=== PATIENT | male | born 1990 | race Caucasian/White ===

== ENCOUNTER 2020-08-06 08:10 | Outpatient (CLI) | payer BC, SELFPAY ==
--- NOTE | ~2020-08-06 | MR_ITS ---
EXAMINATION: MR brain/brain stem wo/w con DATE: 08/06/2020 08:49 INDICATION: Headache. TECHNIQUE: Magnetic resonance imaging (MRI) of the brain and brainstem was performed without and with 15 mL MultiHance intravenous contrast. Sequences included sagittal and axial T1-weighted FSE, axial diffusion-weighted FS EPI, axial T2*-weighted GRE, axial T2-weighted FLAIR Propeller, and axial T2-we ighted Propeller. Postcontrast sequences included axial and coronal T1-weighted FSE. Apparent diffusi on coefficient (ADC) maps were created. COMPARISON: None. FINDINGS: There are scattered areas of nonspecific increased T2-weighted signal intensity in the cere bral white matter, which is within normal limits for the patient's age. There is no intracranial hemo rrhage, acute infarction, or abnormal intracranial mass lesion. The ventricles are normal in size. Th ere is mild mucosal thickening in right maxillary sinus. The orbits are normal. The mastoid air cells are normal. IMPRESSION: 1. Normal aging brain. Reviewed, dictated and finalized at location A. IMPRESSION: 1. Normal aging brain.
[2020-08-06 08:34] LABS: Estimated Glomerular Filt Rate > 60
== END 2020-08-06 08:11 ==
PROVIDERS: PCP Emergency Medicine; Visit Provider Emergency Medicine
DX: R51 Headache (principal)
CPT/HCPCS: 70553; A9577

== ENCOUNTER → 2020-09-03 13:14 | Outpatient (CLI) | payer BC, SELFPAY ==
--- NOTE | ~2020-09-03 | XR_ITS ---
EXAMINATION: XR foot LT min 3V DATE: 09/03/2020 15:11 INDICATION: Polyarthralgia TECHNIQUE: 1. Dorsoplantar, two oblique and lateral views of the left foot were obtained. 2. Dorsoplantar, two oblique and lateral views of the right foot were obtained. COMPARISON: Right foot radiographs dated 11/03/2008 FINDINGS: Normal alignment at the bilateral feet. No fracture. Joint spaces are normal. No cortical erosions or periosteal reaction. Soft tissues are unremarkable. IMPRESSION: 1. Multiple radiographs of the bilateral feet. Reviewed, dictated and finalized at location B.
--- NOTE | ~2020-09-03 | XR_ITS ---
EXAMINATION: XR foot RT min 3V DATE: 09/03/2020 15:11 INDICATION: Polyarthralgia TECHNIQUE: 1. Dorsoplantar, two oblique and lateral views of the left foot were obtained. 2. Dorsoplantar, two oblique and lateral views of the right foot were obtained. COMPARISON: Right foot radiographs dated 11/03/2008 FINDINGS: Normal alignment at the bilateral feet. No fracture. Joint spaces are normal. No cortical erosions or periosteal reaction. Soft tissues are unremarkable. IMPRESSION: 1. Normal radiographs of the bilateral feet. Reviewed, dictated and finalized at location B.
--- NOTE | ~2020-09-03 | XR_ITS ---
EXAMINATION: XR chest 2V DATE: 09/03/2020 15:11 INDICATION: Pulmonary TB. Polyarthralgia. TECHNIQUE: PA and lateral views of the chest were obtained. COMPARISON: None FINDINGS: The lungs are clear with no focal airspace opacities, pulmonary edema, pleural effusion or pneumothor ax. The cardiomediastinal silhouette is normal. Mild upper thoracic levocurvature. IMPRESSION: 1. Clear lungs. No acute cardiopulmonary disease. Reviewed, dictated and finalized at location B.
--- NOTE | ~2020-09-03 | XR_ITS ---
EXAMINATION:XR_CERV2-3V_CR, XR thoracic spine 2V, XR lumbar spine 2-3V, XR pelvis 1-2V DATE: 09/03/2020 15:11 INDICATION: Polyarthralgia TECHNIQUE: 1. Standing AP, lateral, lateral swimmers and odontoid views of the cervical spine are provided. 2. Standing AP, lateral and lateral swimmer's views of the thoracic spine were obtained. 3. Standing AP, lateral and cone-down lateral lumbosacral views of the lumbar spine. 3. Standing AP view of the pelvis was obtained. COMPARISON: None FINDINGS: Cervical spine: Mild reversal of the normal cervical lordosis which could be some positional or due to muscle spasm. No spondylolisthesis or facet subluxation. Odontoid is intact. Normal atlantoaxial interval. Vertebr al body heights are normal. Disc spaces are normal. Prevertebral soft tissues are normal. Thoracic spine: 5 degree levocurvature measured between T3 and T7. 7 degree dextrocurvature measured between T7 and T 12. Sagittal alignment is normal. Vertebral body and disc heights are normal. Paravertebral soft tiss ues are unremarkable. Visualized portions of the lungs are clear. Cardiomediastinal silhouette is nor mal. Lumbar spine: 7 degrees lumbar levocurvature measured between L1 and L5. 2-3 mm retrolisthesis L5 on S1. Vertebral body and disc heights are normal. Pelvis: Alignment is normal. No fracture. Bilateral hip and sacroiliac joints are normal. There is decreased right femoral head/neck offset. Soft tissues are unremarkable. IMPRESSION: 1. Mild levocurvature in the lumbar and upper thoracic spine on other side of the mild lower thoracic dextrocurvature. 2. Mild decreased right femoral head/neck offset which could predispose towards cam-type femoral acet abular impingement. Reviewed, dictated and finalized at location B. IMPRESSION: 1. Mild levocurvature in the lumbar and upper thoracic spine on other side of t he mild lower thoracic dextrocurvature. 2. Mild decreased right femoral head/neck offset which could predispose towards cam-type femoral acetabular impingement. IMPRESSION: 1. Mild levocurvature in the lumbar and upper thoracic spine on other side of t he mild lower thoracic dextrocurvature. 2. Mild decreased right femoral head/neck offset which could predispose towards cam-type femoral acetabular impingement. IMPRESSION: 1. Mild levocurvature in the lumbar and upper thoracic spine on other side of t he mild lower thoracic dextrocurvature. 2. Mild decreased right femoral head/neck offset which could predispose towards cam-type femoral acetabular impingement.
== END ==
PROVIDERS: PCP Emergency Medicine; Visit Provider Physician Assistant
DX: M25.50 Pain in unspecified joint (principal); Z11.1 Encounter for screening for respiratory tuberculosis
CPT/HCPCS: 71046; 72040; 72070; 72100; 72170; 73630

== ENCOUNTER 2021-01-03 13:18 | Emergency (ER) | payer BC, SELFPAY ==
--- NOTE | 2021-01-03 13:23 | ECG_ITS ---
Measurements Intervals [place] Rate: 72 P: 66 [place]: 124 QRS: 51 QRSD: 99 T: 47 QT: 369 QTc: 406 Interpretive Statements SINUS RHYTHM WITH SINUS ARRHYTHMIA BASELINE ARTIFACT- V4 NORMAL ECG Electronically Signed On 01-03-2021 14:25:07 [employer] by Da Cortés D.O.
[2021-01-03 13:30] VITALS: PULSE 92; RESP 17; O2SAT 98
[2021-01-03 13:31] VITALS: BP 132/99; PULSE 84; RESP 13; O2SAT 98
[2021-01-03 13:32] VITALS: BP 132/99; PULSE 83; RESP 17; TEMP 36.6; O2SAT 98
[2021-01-03] MEDS: ONDANSETRON INJ 4 MG/2 ML VIAL IV PUSH (13:43)
[2021-01-03] MEDS: LORazepam INJ (*CRX) 2 MG/ML VIAL 0.5 MG IV PUSH (13:43)
[2021-01-03] MEDS: SODIUM CHLORIDE 0.9% IV 1,000 ML 250 ML IV CONT (13:43)
[2021-01-03 13:44] LABS: Basophils Absolute Auto 0.1 K/mm3 (0.0-0.1); Basophils Percent Auto 0.5 % (0.2-1.2); Eosinophils Percent Auto 0.2 % (0-4.4); Hematocrit 47.2 % (42.0-52.0); Immature Granulocyte Absolute 0.05 K/mm3 (0.00-0.031); Immature Granulocyte Percent A 0.4 % (0-0.5); Lymphocytes Absolute Auto 1.25 K/mm3 (0.9-3.2); Lymphocytes Percent Auto 10.2 % (18.3-44.2); Mean Corpuscular Hemoglobin 31.1 pg (26-34); Mean Corpuscular Volume 86.3 fl (80-100); Mean Platelet Volume 9.7 fl (7.4-10.4); Monocytes Absolute Auto 0.8 K/mm3 (0.1-0.6); Monocytes Percent Auto 6.5 % (2.6-8.5); Neutrophils Absolute Auto 10.1 K/mm3 (1.3-6.7); Neutrophils Percent Auto 82.2 % (45.5-73.1); Platelet Count Result 241 k/mm3 (150-375); Red Blood Count 5.47 M/mm3 (4.6-6.20); Red Cell Distribution Width 11.8 % (11.5-14.5); White Blood Count 12.2 K/mm3 (4.5-10.0)
[2021-01-03 13:45] VITALS: O2SAT 97
[2021-01-03 13:46] VITALS: BP 136/78; O2SAT 97
[2021-01-03 13:57] LABS: Alanine Aminotransferase 25 U/L (4-50); Albumin Level 4.9 g/dL (3.5-5.1); Alkaline Phosphatase 52 U/L (38-126); Anion Gap 9 mmol/L (8-16); Aspartate Amino Transferase 35 U/L (17-59); Bilirubin,Total 0.7 mg/dL (0.2-1.3); Blood Urea Nitrogen 15 mg/dL (9-20); Calcium 9.6 mg/dL (8.4-10.2); Carbon Dioxide 26 mmol/L (22-30); Chloride 103 mmol/L (98-107); Estimated CRCL calculation 146 ml/min; Estimated Glomerular Filt Rate > 60; Glucose 113 mg/dL (75-110); Lipase 69 U/L (23-300); Potassium 3.6 mmol/L (3.4-5.0); Sodium 138 mmol/L (137-145)
--- NOTE | 2021-01-03 14:46 | ED.GENADULT ---
HPI - General Adult General Chief complaint: Neuro Symptoms/Deficit Stated complaint: tingling arms/hands, weakness Time Seen by Provider: 01/03/21 13:21 Source: patient Mode of arrival: ambulatory Limitations: no limitations History of Present Illness HPI narrative: 30-year-old with no major medical problems here with complaints of sudden onset of weakness associated with whole body tingling, abdominal discomfort. Patient states he gets occasional anxiety attacks. He states that he is tremendous amount of stress working couple jobs at a time while he was at work he started having the symptoms. Patient states that he was having bloating sensation followed by chest pain which radiated to his throat. Patient also mentions that he went outside and laid on concrete floor symptoms got worse and decided to come to the ER. Patient states that his chest pain is much improved. Onset (ago): hour(s) (2) Severity: moderate Quality: burning Exacerbating factors: none Associated symptoms: nausea/vomiting Related Data Allergies Allergy/AdvReac Type Severity Reaction Status Date / Time No Known Allergies Allergy Unknown Unverified 01/19/19 09:00 Review of Systems Review of Systems: All systems reviewed & are unremarkable except as noted in HPI and below Constitutional: Constitutional: Reports no additional constitutional complaints Eyes: Eyes: Reports no additional eye complaints ENT: Reports system reviewed and no additional complaints, except as documented Cardiovascular: Cardiovascular: Reports as per HPI Respiratory: Respiratory: Reports no additional respiratory complaints Gastrointestinal: Gastrointestinal: Reports as per HPI Musculoskeletal: Musculoskeletal: Reports no additional musculoskeletal complaints Neurologic: Reports as per HPI Psychiatric: Psychiatric: Reports as per HPI [facility] Social History Social History Gender identity (if verbalized by the patient): Male Exam Narrative: Exam Narrative: GENERAL: Well-appearing, well-nourished, and in no acute distress. HEAD: Normocephalic, atraumatic. EYES: PERRLA and EOMI.. NECK: Supple. CHEST: Clear to auscultation. No respiratory distress. HEART: Regular rate and rhythm. No murmur heard. Normal peripheral pulses. ABDOMEN: Soft, nontender, nondistended, normal active bowel sounds. EXTREMITIES: Normal range of motion. No edema. SKIN: Warm, dry, no rash. NEURO: No focal deficits. Alert and oriented x3. PSYCH: Normal mood and affect. Course Course Emergency Course: Patient states he is feeling slightly better upon arrival to the ER however with this complaint will do CBC chemistry and EKG at this time and also given him IV fluids and Ativan. Patient after receiving the medicine and fluid feels much better. I discussed labs and EKG findings with the patient. Advised him to follow-up with his primary doctor if symptoms recur again. Vital Signs Vital signs: Vital Signs Pulse Rate 92 01/03/21 13:30 Respiratory Rate 17 01/03/21 13:30 Pulse Oximetry 98 01/03/21 13:30 Temperature 36.6 C 01/03/21 13:32 Pulse Rate 83 01/03/21 13:32 Respiratory Rate 17 01/03/21 13:32 Blood Pressure 136/78 01/03/21 13:46 Pulse Oximetry 97 01/03/21 13:46 Medical Decision Making Vital Signs Vital Signs: Vital Signs Pulse Rate 92 01/03/21 13:30 Respiratory Rate 17 01/03/21 13:30 Pulse Oximetry 98 01/03/21 13:30 Temperature 36.6 C 01/03/21 13:32 Pulse Rate 83 01/03/21 13:32 Respiratory Rate 17 01/03/21 13:32 Blood Pressure 136/78 01/03/21 13:46 Pulse Oximetry 97 01/03/21 13:46 Lab Data Result diagrams: 01/03/21 13:35 01/03/21 13:35 Labs: Lab Results 01/03/21 01/03/21 Range/Units 13:35 13:35 WBC 12.2 H (4.5-10.0) K/mm3 RBC 5.47 (4.6-6.20) M/mm3 Hgb 17.0 (14.0-18.0) g/dL Hct 47.2 (42.0-52.0) % MCV 86.3 (80-1
[2021-01-03 14:57] VITALS: BP 124/74; PULSE 76; RESP 16; O2SAT 97
--- NOTE | 2021-01-17 12:16 | PC.NURSE ---
LATE ENTRY This note is being entered to document information to the patient's record. The following information was omitted on [01/03/21], by [Christianne Mejia RN NS stop time is 1445pm ].
--- NOTE | 2021-01-29 21:18 | PC.NURSE ---
LATE ENTRY This note is being entered to document information to the patient's record. The following information was omitted on [01/03/2021], by [alena]. NS bolus finished at 1700.
== END 2021-01-03 14:58 | disposition home or self-care (01) ==
PROVIDERS: Emergency Provider Family Medicine; PCP Emergency Medicine
DX: F41.9 Anxiety disorder, unspecified (principal)
CPT/HCPCS: 36415; 80053; 83690; 85025; 93005; 96361; 96374; 96375; 99284; J2060; J2405; J7030

== ENCOUNTER 2021-04-22 08:44 | Emergency (ER) | payer BC, SELFPAY ==
--- NOTE | ~2021-04-22 | XR_ITS ---
EXAMINATION: XR ribs RT 2V w CXR 2V DATE: 04/22/2021 09:58 INDICATION: Right-sided rib pain with inspiration post fall TECHNIQUE: PA and lateral views of the chest and 3 views of the right ribs were obtained. COMPARISON: Chest radiograph dated 09/03/2020 FINDINGS: No rib fractures identified. Lungs remain clear with no focal airspace opacities, pulmonary edema, pl eural effusion or pneumothorax. Cardiomediastinal silhouette is normal. IMPRESSION: 1. No rib fracture or acute cardiopulmonary disease. Reviewed, dictated and finalized at location A.
[2021-04-22 09:02] VITALS: BP 179/72; PULSE 83; RESP 14; TEMP 36.7; O2SAT 99
[2021-04-22] MEDS: KETOROLAC (*BKC) 60 MG/2 ML VIAL IM (09:07)
--- NOTE | 2021-04-22 09:11 | ED.GENADULT ---
HPI - General Adult General Chief complaint: Fall Stated complaint: FALL, R SIDE PAIN Time Seen by Provider: 04/22/21 08:50 History of Present Illness HPI narrative: Patient is a 30-year-old male who presents ER with right-sided chest pain. Patient was outside yesterday when his dog started running towards him. He was on a running line and he jumped in the air and the dog took out his feet. He landed on his right side. Reports the wind was knocked out of him. He thought he could sleep it off but today realized he was having a lot of anterior right-sided chest pain that was worse with deep breath. Also feels like he cannot raise his shoulder up as well due to the pain. He has full range of motion of the right shoulder. He has no numbness or tingling in the affected extremity. He did not lose consciousness. No additional concerns. Related Data Allergies Allergy/AdvReac Type Severity Reaction Status Date / Time No Known Allergies Allergy Unknown Unverified 01/19/19 09:00 Review of Systems Review of Systems: All systems reviewed & are unremarkable except as noted in HPI and below Constitutional: Constitutional: Denies chills, Denies fever(s) and Denies weakness Cardiovascular: Cardiovascular: Reports chest pain, Denies rapid heart rate and Denies radiating jaw, neck or arm pain Respiratory: Respiratory: Denies cough, Denies dyspnea and Denies wheezing Gastrointestinal: Gastrointestinal: Denies nausea and Denies vomiting Neurologic: Denies syncope, Denies focal weakness and Denies numbness PMFSH Past Medical History Medical History (Updated 04/22/21 @ 10:26 by Madhu Valverde MD) Healthy adult male Surgical History Surgical History (Updated 04/22/21 @ 09:13 by Madhu Valverde MD) No history of previous surgery Social History Social History (Updated 04/22/21 @ 09:13 by Madhu Valverde MD) Alcohol intake: current Gender identity (if verbalized by the patient): Male Exam Narrative: Exam Narrative: GENERAL: Well-appearing, well-nourished, and in no acute distress. HEAD: Normocephalic, atraumatic. NECK: Supple. No midline tenderness or paraspinal muscular tenderness. No crepitus. CHEST: Clear to auscultation. No respiratory distress. Tender palpation over the right anterior chest wall at the pectoralis and just inferior laterally to it as well. HEART: Regular rate and rhythm. Normal peripheral pulses. BACK: No Midline Tenderness of Thoracic or Lumbar Spine. No Paraspinal Muscular Tenderness. No Visual Evidence of Trauma. EXTREMITIES: Normal range of motion. No edema. SKIN: Warm, dry, no rash. NEURO: Alert and oriented x3. Course Course Emergency Course: Pain improved with Toradol. Informed of results. Discharge home with naproxen. Vital Signs Vital signs: Vital Signs Temperature 98.1 F 04/22/21 09:02 Pulse Rate 83 04/22/21 09:02 Respiratory Rate 14 04/22/21 09:02 Blood Pressure 179/72 H 04/22/21 09:02 Pulse Oximetry 99 04/22/21 09:02 Temperature 98.1 F 04/22/21 09:02 Pulse Rate 64 04/22/21 10:18 Respiratory Rate 12 04/22/21 10:18 Blood Pressure 158/87 H 04/22/21 10:18 Pulse Oximetry 99 04/22/21 10:18 Medical Decision Making Vital Signs Vital Signs: Vital Signs Temperature 98.1 F 04/22/21 09:02 Pulse Rate 83 04/22/21 09:02 Respiratory Rate 14 04/22/21 09:02 Blood Pressure 179/72 H 04/22/21 09:02 Pulse Oximetry 99 04/22/21 09:02 Temperature 98.1 F 04/22/21 09:02 Pulse Rate 64 04/22/21 10:18 Respiratory Rate 12 04/22/21 10:18 Blood Pressure 158/87 H 04/22/21 10:18 Pulse Oximetry 99 04/22/21 10:18 Imaging Data Radiologist's impression: ITS Impressions Ribs w/Chest X-Ray 04/22/21 10:17 IMPRESSION: 1. No rib fracture or acute cardiopulmonary disease. Discharge Plan Discharge Clinical Impression: Chest wall contusion Patient Disposition: Home, Self-Care Condition: Stable
[2021-04-22 10:18] VITALS: BP 158/87; PULSE 64; RESP 12; O2SAT 99
== END 2021-04-22 10:34 | disposition home or self-care (01) ==
PROVIDERS: Emergency Provider Emergency Medicine; PCP Emergency Medicine
DX: S20.211A Contusion of right front wall of thorax, initial encounter (principal); W54.1XXA Struck by dog, initial encounter
CPT/HCPCS: 71046; 71100; 96372; 99283; J1885

== ENCOUNTER 2022-05-19 11:30 | Emergency (ER) | payer BC, SELFPAY ==
[2022-05-19 11:39] VITALS: BP 147/90; PULSE 98; RESP 16; TEMP 36.6; O2SAT 98
--- NOTE | 2022-05-19 12:07 | ED.EAR ---
HPI - Ear Problem General Chief complaint: Ear Stated complaint: ST, RIGHT EAR PAIN Time Seen by Provider: 05/19/22 11:54 History of Present Illness HPI Narrative: 31-year male presents emergency room secondary to severe pain to the right ear is been going on for last couple days. Denies any history of recurrent otitis media in the past. States pain is rating from 0 down the right side of his face. Has had mild congestion. He did COVID test at home which is known to be negative Related Data Allergies Allergy/AdvReac Type Severity Reaction Status Date / Time No Known Allergies Allergy Unknown Unverified 05/19/22 11:42 Review of Systems Review of Systems: CONSTITUTIONAL: Denies fever, chills, or sweats. EYES: Denies visual changes, redness, or discharge. ENT: Denies rhinorrhea, congestion, sore throat. Noted to have severe pain to the right ear CARDIOVASCULAR: Denies chest pain, palpitations, or edema. RESPIRATORY: Denies cough or dyspnea. GASTROINTESTINAL: Denies abdominal pain, nausea, vomiting, or diarrhea. GENITOURINARY: Denies dysuria or hematuria. SKIN: Denies rash or itching. MUSCULOSKELETAL: Denies back pain, joint pain, or myalgia. NEUROLOGIC: Denies headache, numbness, or weakness. PSYCHIATRIC: Denies anxiety or depression. PMFSH Past Medical History Medical History Healthy adult male Surgical History Surgical History No history of previous surgery Social History Social History Alcohol intake: current Gender identity (if verbalized by the patient): Male Exam Narrative: APPEARANCE: Well appearing, no pain or distress, well-nourished. Head normocephalic and atraumatic. EYES: PERRLA/EOMI, conjunctivae very clear. NOSE: Normal with no drainage EARS: Right TM is noted to be dull with appears to be fluid behind it. THROAT: Pharynx clear, no exudate. NECK: Supple. No adenopathy, no masses. RESPIRATORY: Airway patent, respirations nonlabored. Clear to auscultation bilaterally, no rales, rhonchi, wheezing. CARDIOVASCULAR: Regular rate and rhythm without murmurs, rubs, or gallops. ABDOMINAL: Soft, nontender, nondistended, no hepatosplenomegaly Musculoskeletal: Moves all extremities. Strength/ROM intact, No edema, No calf tenderness. NEURO: Alert. Cranial nerves II through XII intact. Normal gait. Good coordination. Nonfocal examination. SKIN:: Warm, dry. Normal Color PSYCHIATRIC: Normal affect/mood, normal interaction Course Vital Signs Vital signs: Vital Signs Temperature 98 F 05/19/22 11:39 Pulse Rate 98 05/19/22 11:39 Respiratory Rate 16 05/19/22 11:39 Blood Pressure 147/90 H 05/19/22 11:39 Pulse Oximetry 98 05/19/22 11:39 Oxygen Delivery Room Air 05/19/22 11:39 Temperature 98 F 05/19/22 11:39 Pulse Rate 98 05/19/22 11:39 Respiratory Rate 16 05/19/22 11:39 Blood Pressure 147/90 H 05/19/22 11:39 Pulse Oximetry 98 05/19/22 11:39 Oxygen Delivery Room Air 05/19/22 11:39 Medical Decision Making Vital Signs Vital Signs: Vital Signs Temperature 98 F 05/19/22 11:39 Pulse Rate 98 05/19/22 11:39 Respiratory Rate 16 05/19/22 11:39 Blood Pressure 147/90 H 05/19/22 11:39 Pulse Oximetry 98 05/19/22 11:39 Oxygen Delivery Room Air 05/19/22 11:39 Temperature 98 F 05/19/22 11:39 Pulse Rate 98 05/19/22 11:39 Respiratory Rate 16 05/19/22 11:39 Blood Pressure 147/90 H 05/19/22 11:39 Pulse Oximetry 98 05/19/22 11:39 Oxygen Delivery Room Air 05/19/22 11:39 Discharge Plan Discharge Clinical Impression: Acute serous otitis media of right ear Patient Disposition: Home, Self-Care Condition: Stable Instructions: Antibiotic Form, Ear Infection (ED) Additional Instructions: Take medication as prescribed. Follow-up with your regular physician. Retur
== END 2022-05-19 12:17 | disposition home or self-care (01) ==
PROVIDERS: Emergency Provider Emergency Medicine
DX: H65.01 Acute serous otitis media, right ear (principal)
CPT/HCPCS: 99283

== ENCOUNTER 2022-05-23 07:58 | Emergency (ER) | payer SELFPAY ==
--- NOTE | ~2022-05-23 | XR_ITS ---
XR chest 2V DATE: 05/23/2022 08:43 INDICATION: Lightheadedness TECHNIQUE: AP and lateral views COMPARISON: 04/22/2021 PA and lateral chest FINDINGS: Normal heart size. No hilar or mediastinal enlargement. No pulmonary infiltrate or consolid ation, pleural effusion or pulmonary vascular congestion or pneumothorax. Included skeletal structure s are unremarkable. IMPRESSION: Negative Reviewed, dictated and finalized at location A. IMPRESSION: Negative
[2022-05-23 08:00] VITALS: BP 154/79; PULSE 61; RESP 18; TEMP 36.2; O2SAT 100
--- NOTE | 2022-05-23 08:15 | ECG_ITS ---
Measurements Intervals [place] Rate: 61 P: 72 CT: 170 QRS: 70 QRSD: 89 T: 56 QT: 387 QTc: 391 Interpretive Statements SINUS RHYTHM ST ELEVATION IN ANTEROLAT/INF LEADS- PROBABLY EARLY REPOLARIZATION BASELINE ARTIFACT- I, II, III, AVL BORDERLINE ECG Electronically Signed On 05-23-2022 18:27:41 CDT by Da Cortés D.O.
[2022-05-23 08:17] VITALS: BP 142/91; RESP 18; O2SAT 100
--- NOTE | 2022-05-23 08:28 | PC.NURSE ---
Pt stated to this nurse during assessment that his boss stated when the pt had an episode of tingling hands/dizziness he also had slurred speech. Pt stated he did not know this at the time of the event
[2022-05-23 08:31] LABS: Basophils Percent Auto 0.5 % (0.2-1.2); Eosinophils Absolute Auto 0.1 K/mm3 (0-0.3); Eosinophils Percent Auto 2.2 % (0-4.4); Hematocrit 44.1 % (42.0-52.0); Hemoglobin 14.9 g/dL (14.0-18.0); Lymphocytes Absolute Auto 2.35 K/mm3 (0.9-3.2); Lymphocytes Percent Auto 42.2 % (18.3-44.2); Mean Corpuscular HGB Conc 33.8 g/dl (32-36); Mean Corpuscular Hemoglobin 30.3 pg (26-34); Mean Corpuscular Volume 89.6 fl (80-100); Mean Platelet Volume 9.6 fl (7.4-10.4); Monocytes Absolute Auto 0.4 K/mm3 (0.1-0.6); Monocytes Percent Auto 7.5 % (2.6-8.5); Neutrophils Absolute Auto 2.7 K/mm3 (1.3-6.7); Neutrophils Percent Auto 47.6 % (45.5-73.1); Platelet Count Result 251 k/mm3 (150-375); Red Blood Count 4.92 M/mm3 (4.6-6.20); Red Cell Distribution Width 12.7 % (11.5-14.5); White Blood Count 5.6 K/mm3 (4.5-10.0)
--- NOTE | 2022-05-23 08:31 | ED.GENADULT ---
HPI - General Adult General Chief complaint: Unspecified Stated complaint: dehydration?? Time Seen by Provider: 05/23/22 08:04 History of Present Illness HPI narrative: 31-year-old male presented to the emergency department for evaluation of nausea vomiting that started this morning. Patient states that he did have a normal day yesterday. Patient states he did have a couple beers with dinner last evening but felt fine. Patient states when he woke up this morning he was having nausea and vomiting and cannot keep liquids down. Patient states while at work he had onset of a flushed feeling preceded by nausea and vomiting. Patient states he did have some hand cramping during the episode. Upon arrival to emergency room patient states he does feel improved. Patient has no further cramping. Patient is alert oriented at normal baseline. Patient states that his nausea has improved. Related Data Allergies Allergy/AdvReac Type Severity Reaction Status Date / Time No Known Allergies Allergy Unknown Verified 05/23/22 08:11 Review of Systems Review of Systems: CONSTITUTIONAL: See HPI EYES: Denies visual changes, redness, or discharge. ENT: Denies rhinorrhea, congestion, sore throat, or otalgia. CARDIOVASCULAR: Denies chest pain, palpitations, or edema. RESPIRATORY: Denies cough or dyspnea. GASTROINTESTINAL: See HPI GENITOURINARY: Denies dysuria or hematuria. SKIN: Denies rash or itching. MUSCULOSKELETAL: Denies back pain, joint pain, or myalgia. NEUROLOGIC: Denies headache, numbness, or weakness. PMFSH Past Medical History Medical History Healthy adult male Surgical History Surgical History No history of previous surgery Social History Social History Alcohol intake: current Gender identity (if verbalized by the patient): Male Exam Narrative: APPEARANCE: Well appearing, no pain, no distress, well-nourished. HEAD: normocephalic, atraumatic. EYES: PERRLA/EOMI, conjunctivae clear. NOSE: Normal no drainage THROAT: Pharynx clear, no exudate. NECK: Supple. No adenopathy, no masses. RESPIRATORY: Airway patent, respirations nonlabored. Clear to auscultation bilaterally, no rales, rhonchi, wheezing. CARDIOVASCULAR: Regular rate and rhythm without murmurs rubs or gallops. ABDOMINAL: Soft, nontender, nondistended, normal bowel sounds MUSCULOSKELETAL: Moves all extremities. Strength/ROM intact, No edema, No calf tenderness. NEURO: Alert. Cranial nerves II through XII intact. Grossly intact SKIN: Warm, dry. Normal Color Course Course Emergency Course: Patient did feel improved with treatment. Patient's potassium was replaced orally. Patient was treated with 2 L of normal saline. Patient is tolerating p.o. and making urine. Vital Signs Vital signs: Vital Signs Temperature 97.2 F L 05/23/22 08:00 Pulse Rate 61 05/23/22 08:00 Respiratory Rate 18 05/23/22 08:00 Blood Pressure 154/79 H 05/23/22 08:00 Pulse Oximetry 100 05/23/22 08:00 Oxygen Delivery Room Air 05/23/22 08:00 Temperature 97.2 F L 05/23/22 08:00 Pulse Rate 102 H 05/23/22 11:11 Respiratory Rate 20 05/23/22 11:11 Blood Pressure 147/82 H 05/23/22 11:11 Pulse Oximetry 100 05/23/22 11:11 Oxygen Delivery Room Air 05/23/22 08:00 Medical Decision Making Vital Signs Vital Signs: Vital Signs Temperature 97.2 F L 05/23/22 08:00 Pulse Rate 61 05/23/22 08:00 Respiratory Rate 18 05/23/22 08:00 Blood Pressure 154/79 H 05/23/22 08:00 Pulse Oximetry 100 05/23/22 08:00 Oxygen Delivery Room Air 05/23/22 08:00 Temperature 97.2 F L 05/23/22 08:00 Pulse Rate 102 H 05/23/22 11:11 Respiratory Rate 20 05/23/22 11:11 Blood Pressure 147/82 H 05/23/22 11:11 Pulse Oximetry 100 05/23/22 11:11 Oxygen Delivery Room Air 05/23/22 08:00 Lab D
[2022-05-23 08:32] VITALS: BP 134/79; RESP 18; O2SAT 96
[2022-05-23 08:32] LABS: Glucose Point of Care 102 mg/dl (65-105)
[2022-05-23 08:40] LABS: Alanine Aminotransferase 21 U/L (6-50); Albumin Level 4.8 g/dL (3.5-5.1); Alkaline Phosphatase 52 U/L (38-126); Anion Gap 10 mmol/L (8-16); Aspartate Amino Transferase 30 U/L (17-59); Bilirubin,Total 0.3 mg/dL (0.2-1.3); Blood Urea Nitrogen 16 mg/dL (9-20); Calcium 8.6 mg/dL (8.4-10.2); Carbon Dioxide 24 mmol/L (22-30); Chloride 105 mmol/L (98-107); Creatine Kinase 294 U/L (55-170); Estimated CRCL calculation 118 ml/min; Estimated Glomerular Filt Rate > 60; Glucose 107 mg/dL (65-110); Potassium 3.2 mmol/L (3.4-5.0); Sodium 139 mmol/L (137-145)
[2022-05-23] MEDS: ONDANSETRON INJ 4 MG/2 ML VIAL IV PUSH (08:47)
[2022-05-23] MEDS: SODIUM CHLORIDE 0.9% IV 1,000 ML 999 ML IV CONT ×2 (08:52→09:52)
[2022-05-23] MEDS: POTASSIUM CHLORIDE 20 MEQ PACKET (FOR LIQUID) 40 MEQ PO (09:48)
[2022-05-23 10:14] LABS: Appearance Urine Clear (Clear); Bilirubin Urine Negative (Negative); Blood Urine Negative (Negative); Color Urine Yellow (Yellow); Glucose Urine UA Negative (Negative); Ketones Urine 2+ mg/dL (Negative); Leukocyte Esterase Ur Negative LEU/UL (Negative); Nitrate Urine Negative (Negative); Protein Urine Negative (Negative); Specific Grav Ur 1.025 (1.001-1.035)
[2022-05-23 10:39] LABS: Mucus Urine Few /lpf; RBC Urine 0-2 /hpf (0-2); WBC Urine 0-3 /hpf
[2022-05-23 10:50] LABS: Add Urine Microscopic? YES
[2022-05-23 11:11] VITALS: BP 147/82; PULSE 102; RESP 20; O2SAT 100
== END 2022-05-23 11:09 | disposition home or self-care (01) ==
PROVIDERS: Emergency Provider Emergency Medicine
DX: E86.0 Dehydration (principal); R11.2 Nausea with vomiting, unspecified; R94.31 Abnormal electrocardiogram [ECG] [EKG]
CPT/HCPCS: 36415; 71046; 80053; 81001; 82550; 82948; 85025; 93005; 96361; 96374; 99284; A9270; J2405; J7030

== ENCOUNTER 2024-09-14 10:52 | Emergency (ER) | payer SELFPAY ==
--- NOTE | ~2024-09-14 | XR_ITS ---
XR chest 1V portable Ordering provider: Bony Menezes PA-C History: 34 years Male with . near syncope, palpitations . Comparison: None. FINDINGS: MEDIASTINUM: The cardiac silhouette is not enlarged. LUNGS: No infiltrates, effusions or pneumothorax. Prominent bronchovascular markings in the lower lobes. Atelectasis versus early bronchopneumonia is n ot excluded. OTHER: No free air under the diaphragm. IMPRESSION: Prominent bronchovascular markings in the lower lobes. Atelectasis versus early bronchopneumonia is n ot excluded. Reviewed, dictated and finalized at location A. CARE GIVER IMPRESSION: Prominent bronchovascular markings in the lower lobes. Atelectasis versus early bronchopneumonia is not excluded.
--- NOTE | ~2024-09-14 | CT_ITS ---
CT brain wo con Ordering provider: Bony Menezes PA-C History: 34 years Male with . new onset SMITH, dizziness . Comparison: None. Technique: CT of the head without contrast. Radiation reduction technique utilized.The dose-length pr oduct was 605.33 mGy-cm. FINDINGS: BRAIN PARENCHYMA AND CSF SPACES: No midline shift, mass effect or hemorrhage. The brain parenchyma a nd CSF spaces are otherwise normal. VISUALIZED PARANASAL SINUSES: Well aerated. MASTOIDS: Well aerated. BONES: The bones appear intact. SOFT TISSUES: Visualized nasopharynx is normal. Superficial soft tissues are normal. IMPRESSION: No acute intracranial findings. Reviewed, dictated and finalized at location A. OARRAY SPECIALIST
[2024-09-14 11:07] VITALS: BP 136/82; PULSE 60; RESP 18; TEMP 36.4; O2SAT 100
[2024-09-14 11:13] LABS: Glucose Point of Care 105 mg/dl (65-105)
--- NOTE | 2024-09-14 11:19 | ECG_ITS ---
Test Date: 2024-09-14 11:26:05 Measurements Intervals [place] Rate: 53 P: 52 [place]: 157 QRS: 61 QRSD: 93 T: 47 QT: 387 QTc: 366 Interpretive Statements SINUS BRADYCARDIA WITH SINUS ARRHYTHMIA ST ELEVATION IN DIFFUSE LEADS- PROBABLY EARLY REPOLARIZATION BASELINE ARTIFACT- I, II, III, AVR, AVL, AVF, V4-V6 BORDERLINE ECG No previous ECG available for comparison Electronically Signed On 09-14-2024 12:47:37 [facility] by Da Cortés D.O.
[2024-09-14 11:21] VITALS: BP 135/89; PULSE 71; RESP 15; TEMP 36.4; O2SAT 98
--- NOTE | 2024-09-14 12:09 | ED.DIZZY ---
HPI - Dizziness General Chief Complaint: Syncope Stated Complaint: near syncopal episode at work Time Seen by Provider: 09/14/24 11:33 Source: patient Mode of arrival: ambulatory Limitations: no limitations History of Present Illness HPI Narrative: This is a 34-year-old male who presents to the ED for chief complaint of near syncopal event while at work today. Patient states that he is feeling a little off at his desk so he stood up, and as soon as he stood up he started to feel like he may pass out. Reports that he had a sensation of nearly blacking out but was able to get himself to a seated position. States that when he was seated he was still feeling lightheaded and started to develop some palpitations and headache. Reports the headache has subsided a little bit but still there. Denies chest pain, shortness of breath, recent illness, fevers, chills, nausea, vomiting, diarrhea. Denies any abnormal bleeding symptoms. Related Data Allergies Allergy/AdvReac Type Severity Reaction Status Date / Time No Known Allergies Allergy Unknown Verified 09/14/24 10:52 Review of Systems Review of Systems: All systems as dictated in [facility] Past Medical History Medical History Healthy adult male Surgical History Surgical History No history of previous surgery Social History Social History Alcohol intake: current Gender identity (if verbalized by the patient): Male Exam Narrative: GENERAL: Well-appearing, well-nourished, and in no acute distress. HEAD: Normocephalic, atraumatic. EYES: PERRLA and EOMI. ENT: Nares clear, no rhinorrhea or epistaxis. Mucous membranes moist. Oropharynx without tonsillar hypertrophy exudate or other lesions. NECK: Supple. No adenopathy or masses. CHEST: No respiratory distress. Clear to auscultation. No wheezes rales or rhonchi HEART: Regular rate and rhythm. No murmur heard. Normal peripheral pulses. ABDOMEN: Soft, nontender, nondistended, normal active bowel sounds. MSK: Normal range of motion. No edema. SKIN: Warm, dry, no rash. NEURO: Alert and oriented x4. No focal deficits. PSYCH: Normal mood and affect. Course Vital Signs Vital signs: Vital Signs Temperature 97.6 F 09/14/24 11:07 Pulse Rate 60 09/14/24 11:07 Respiratory Rate 18 09/14/24 11:07 Blood Pressure 136/82 09/14/24 11:07 Pulse Oximetry 100 09/14/24 11:07 Oxygen Delivery Room Air 09/14/24 11:07 Temperature 97.6 F 09/14/24 11:21 Pulse Rate 84 09/14/24 13:45 Respiratory Rate 16 09/14/24 13:45 Blood Pressure 136/88 09/14/24 13:45 Pulse Oximetry 98 09/14/24 13:45 Oxygen Delivery Room Air 09/14/24 11:07 MDM - Dizziness MDM Narrative Medical decision making narrative: This is a 34 yo male who presents to the ED for chief complaint of near syncopal episode when standing up from his desk today. Vitals are normal. Exam is benign overall. EKG shows sinus rhythm benign early repolarization. No chest pain to indicate pericarditis. Lab work is unremarkable overall. Chest x-ray: IMPRESSION: Prominent bronchovascular markings in the lower lobes. Atelectasis versus early bronchopneumonia is not excluded CT brain shows no acute findings. Presentation today is likely consistent with orthostatic dizziness. He was given headache medications as well as fluids and is feeling improved. There is questionable pneumonia on the patient's chest x-ray which could be contributing. Will start on Augmentin for this and encouraged patient to stay well hydrated at home. Patient will be discharged in stable condition. Supportive measures discussed and return precautions given. Patient is understanding and agreeable with plan for discharge with PCP follow-up. Lab Data 09/14/24 12:33 09/14/24 12:33 Labs: Lab Results 09/14/24 09/14/24 Range/Units 11:10 12:33 WBC 7.3 (4.5-10.0) K/mm3 RBC 4.90 (4.6-6.20) M/mm3 Hgb 15.3 (14.0-18.0) g/dL Hct 43.9 (42.0-52.0) % MCV 89.6 (80-100) fl MCH 31.2 (26-34) pg MCHC 34.9 (32-36) g/dl RDW 12.0 (11.5-14.5) % Plt Count 233 (150-375) k/mm3 MPV 9.5 (7.4-10.4) fl Immature Gran % (Auto) 0.3 (0-0.5) % Neut % (Auto) 74.8 H (45.5-73.1) % Lymph % (Auto) 17.7 L (18.3-44.2) % [place] % (Auto) 5.9 (2.6-8.5) % Eos % (Auto) 0.8 (0-4.4) % Baso % (Auto) 0.5 (0.2-1.2) % Lymph # (Auto) 1.29 (0.9-3.2) K/mm3 [place] # (Auto) 0.4 (0.1-0.6) K/mm3 Eos # (Auto) 0.1 (0-0.3) K/mm3 Baso # (Auto) 0.0 (0.0-0.1) K/mm3 Abs Immat Gran (auto) 0.02 (0.00-0.031) K/mm3 Absolute Neuts (auto) 5.5 (1.3-6.7) K/mm3 Absolute Nucleated RBC 0.000 (0.0-0.012) K/mm3 Nucleated RBC % 0.0 (0.0-0.2) % Sodium 138 (137-145) mmol/L Potassium 3.8 (3.4-5.0) mmol/L Chloride 103 (98-107) mmol/L Carbon Dioxide 27 (22-30) mmol/L Anion Gap 8 (4-12) mmol/L BUN 13 (9-20) mg/dL Creatinine 0.70 (0.7-1.3) mg/dL Estim Creat Clear Calc 145 ml/min Estimated GFR > 60 (59 - ) Glucose 97 (65-110) mg/dL POC Capillary Glucose 105 (65-105) mg/dl Calcium 9.3 (8.4-10.2) mg/dL Total Bilirubin 0.5 (0.2-1.3) mg/dL AST 31 (17-59) U/L ALT 21 (6-50) U/L Alkaline Phosphatase 46 (38-126) U/L Total Protein 8.0 (6.3-8.2) g/dL Albumin 4.7 (3.5-5.1) g/dL ECG Data EKG #1: ECG completion date: 09/14/24 ECG completion time: 15:03 Prior ECG tracings: available for review Interpretation: Sinus bradycardia with sinus arrhythmia Diffuse ST elevation consistent with benign early repolarization QRS normal QTC normal No acute ischemic findings Discharge Plan Discharge Clinical Impression: Orthostatic dizziness, Abnormal chest x-ray Patient Disposition: Home, Self-Care Condition: Stable Instructions: Antibiotic Form, Near Syncope (ED) Additional Instructions: Exam and imaging today are reassuring. There are some questionable spots on the chest x-ray that show possible pneumonia. Could just be a viral illness. However please take antibiotics as prescribed for possible pneumonia. Need to follow-up with PCP on this issue. Stay well hydrated at home. If you have any new or worsening symptoms please return to the ER for further evaluation. Prescriptions: New amoxicillin-pot clavulanate 875-125 mg tablet 1 tablet PO Q12H Qty: 14 0RF No Action ondansetron 4 mg tablet,disintegrating 4 mg PO Q8H PRN (Reason: nausea and vomiting) Qty: 14 0RF Follow-up/Referrals: PHYSICIAN,REGIONAL EHS MANAGER [Non-Staff] - Time of Disposition: 13:22
[2024-09-14 12:39] LABS: Basophils Percent Auto 0.5 % (0.2-1.2); Eosinophils Absolute Auto 0.1 K/mm3 (0-0.3); Eosinophils Percent Auto 0.8 % (0-4.4); Hematocrit 43.9 % (42.0-52.0); Hemoglobin 15.3 g/dL (14.0-18.0); Immature Granulocyte Absolute 0.02 K/mm3 (0.00-0.031); Immature Granulocyte Percent A 0.3 % (0-0.5); Lymphocytes Absolute Auto 1.29 K/mm3 (0.9-3.2); Lymphocytes Percent Auto 17.7 % (18.3-44.2); Mean Corpuscular HGB Conc 34.9 g/dl (32-36); Mean Corpuscular Hemoglobin 31.2 pg (26-34); Mean Corpuscular Volume 89.6 fl (80-100); Mean Platelet Volume 9.5 fl (7.4-10.4); Monocytes Absolute Auto 0.4 K/mm3 (0.1-0.6); Monocytes Percent Auto 5.9 % (2.6-8.5); Neutrophils Absolute Auto 5.5 K/mm3 (1.3-6.7); Neutrophils Percent Auto 74.8 % (45.5-73.1); Platelet Count Result 233 k/mm3 (150-375); White Blood Count 7.3 K/mm3 (4.5-10.0)
[2024-09-14 12:51] VITALS: BP 123/79; PULSE 59; RESP 16; O2SAT 99
[2024-09-14 12:54] LABS: Alanine Aminotransferase 21 U/L (6-50); Albumin Level 4.7 g/dL (3.5-5.1); Alkaline Phosphatase 46 U/L (38-126); Anion Gap 8 mmol/L (4-12); Aspartate Amino Transferase 31 U/L (17-59); Bilirubin,Total 0.5 mg/dL (0.2-1.3); Blood Urea Nitrogen 13 mg/dL (9-20); Calcium 9.3 mg/dL (8.4-10.2); Carbon Dioxide 27 mmol/L (22-30); Chloride 103 mmol/L (98-107); Estimated CRCL calculation 145 ml/min; Estimated Glomerular Filt Rate > 60; Glucose 97 mg/dL (65-110); Potassium 3.8 mmol/L (3.4-5.0); Sodium 138 mmol/L (137-145)
[2024-09-14] MEDS: SODIUM CHLORIDE 0.9% IV 1,000 ML 999 ML IV CONT (13:01)
[2024-09-14] MEDS: diphenhydrAMINE HCl INJ 50 MG/ML VIAL 25 MG IV PUSH (13:02)
[2024-09-14] MEDS: METOCLOPRAMIDE HCL INJ 10 MG/2 ML VIAL IV PUSH (13:03)
[2024-09-14] MEDS: KETOROLAC 15 MG/ML VIAL (*BKC) IV PUSH (13:07)
[2024-09-14 13:45] VITALS: BP 136/88; PULSE 84; RESP 16; O2SAT 98
== END 2024-09-14 13:46 | disposition home or self-care (01) ==
PROVIDERS: Emergency Provider Physician Assistant
DX: R42 Dizziness and giddiness (principal); R91.8 Other nonspecific abnormal finding of lung field
CPT/HCPCS: 36415; 70450; 71045; 80053; 82948; 85025; 93005; 96361; 96374; 96375; 99284; J1200; J1885; J2765; J7030

== ENCOUNTER 2025-02-09 09:23 | Emergency (ER) | payer SELFPAY ==
--- NOTE | ~2025-02-09 | CT_ITS ---
History: Lower back pain after lifting weights PROCEDURE: CT lumbar spine without intravenous contrast. COMPARISON: Reference is made to a plain film evaluation of the lumbar spine dated 09/03/2020 TECHNIQUE: Multiple contiguous axial images of the lumbar spine were performed without the administration of int ravenous contrast. DLP: 689 mGy-cm FINDINGS: Straightening of the normal lordotic curvature of the lumbar spine is identified, possibly muscular i n origin. No acute compression fractures are present. No soft tissue abnormality is noted. At the level of L3/L4: Right paracentral disc protrusion without significant mass effect on either the spinal canal or left neural foramen. Trace narrowing of the right neural foramen, likely not clinically significant. At the level of L4/L5: A broad-based disc protrusion with mass effect on both the spinal canal and to a lesser extent the bi lateral neural foramen. Hypertrophy of the ligamentum flavum is also noted, contributing to the degree of spinal stenosis. Impression: Straightening of the normal lordotic curvature of the lumbar spine, likely muscular in origin. Multilevel degenerative disease (as detailed above), without acute compression fracture. Reviewed, dictated and finalized at location A. Impression: Straightening of the normal lordotic curvature of the lumbar spine, likely musc ular in origin. Multilevel degenerative disease (as detailed above), without acute compression fracture.
[2025-02-09 09:23] VITALS: BP 138/96; PULSE 70; RESP 16; TEMP 36.7; O2SAT 98
--- OUTSIDE RECORDS SUMMARY | 2025-02-09 09:39 | XMS_ITS | Continuity of Care Document ---
Author Organization [facility] Address [address] [place] [address] [place] [address] Phone Care Team Providers [employer] Name Role Phone Stevenson Sevilla MD Unavailable Unavailable Allergies, Adverse Reactions, Alerts Substance Reaction Status Criticality No Known Allergies Active No Inform ation Medications Medication Instructions Dosage Effective Dates (start - stop) Status Comments Norvasc 2.5 mg tablet take 1 tablet by o ral route every day 2.5 MG - Active Procedures Procedure Date OFFICE/OUTPATIENT VISIT, EST OFFICE/OUTPATIENT VISIT, EST OFFICE/OUTPATIENT VISIT, EST OFFICE/OUTPATIENT VISIT, EST OFFICE/OUTPATIENT VISIT, EST OFFICE/OUTPATIENT VISIT, EST PREV VISIT, NEW, AGE 18-39 OFFICE/OUTPATIENT VISIT, NEW Advance Directives Directive Yes / No Effective Date File Name No Information Encounters Encounter Description Practice Location Reason(s) For Visit Diagnoses Date Provider Providers Copied on Encounter OFFICE/OUTPA TIENT VISIT, EST [facility], [address] [place], [place], [id number], [place] tel:[phone] [facility] Medicine ear tingling1 (chief complaint) lymph node1 (chief complaint) cold toes1 (chief complaint) ED1 (chief complaint) anxiety1 (chief complaint) thyroid1 (chief complaint) Raynaud's disease without gangreneMale erectile dysfunction, unspecifiedGenerali zed Anxiety DisorderLymphadenop athyThyroiditisPare sthesia of skin Jul- 1 Roel Gamino. [address], [place], [place], [address] , [place]. tel:[phone] [facility], [address], [place], [place], [address], [place] tel:[phone] [facility] No Information 1 Roel Gamino. [address], [place], [place], [address] , [place]. tel:[phone] OFFICE/OUTPA TIENT VISIT, [facility], [address], [place], [place], [address], [place] tel:[phone] [facility] rash (chief complaint) anxiety1 (chief complaint) TPO (chief complaint) joint pain1 (chief complaint) ThyroiditisGenerali zed Anxiety DisorderGeneralized hyperhidrosisAllerg ic contact dermatitis due to plants, except foodPain in unspecified joint 1 Roel Gamino. [address], [address], [place], [place], [address] , [place]. tel:[phone] Referring Provider: Stevenson Sevilla, [address], [place], [place], [id number]. tel:[phone] OFFICE/OUTPA TIENT VISIT, [facility], [address], [place], [place], [address], [place] tel:[phone] [facility] anxiety1 (chief complaint) thyroid1 (chief complaint) Generalized Anxiety DisorderThyroiditis Feb- 1 Roel Horton [address], [place], [place], [address] , [place]. tel:[phone] Referring Provider: Stevenson Sevilla [address], [place], [place], [address]. tel:[phone] OFFICE/OUTPA TIENT VISIT, [facility], [address], [place], [place], [address], [place] tel:[phone] [facility] panic (chief complaint) panic1 (chief complaint) STUART (chief complaint) ThyroiditisRaised antibody titerGeneralized Anxiety Disorder Mar-0 3-202 1 Roel Gamino. [address], [place], [place], [address] , [place]. tel:[phone] Referring Provider: Collin Riddle [address], [place], [place], [address]. tel:[phone] OFFICE/OUTPA TIENT VISIT, [facility], [address], [place], [place], [address], [place] tel:[phone] [facility] TPO (chief complaint) STUART (chief complaint) Raised antibody titerThyroiditisNeu ropathyPain in unspecified joint 0 Roel Gamino. [address], [place], [place], [address] , [place]. tel:[phone] Referring Provider: Collin Riddle [address] [facility] [address], [place], [place], [address]. tel:[phone] OFFICE/OUTPA TIENT VISIT, [facility], [address], [place], [place], [address], [place] tel:[phone] [facility] pain (chief complaint) headache1 (chief complaint) urinary urgency1 (chief complaint) heat intoleranc e1 (chief complaint) PolyuriaPain in unspecified jointHeadacheNeurop athy 0 Roel Gamino. [address], [place], [place], [address] , [place]. tel:[phone] Referring Provider: Collin Riddle [address], [place], [place], [address]. tel:[phone] PREV VISIT, NEW, AGE 18-39 [facility], [address], [place], [place], [address], [place] tel:[phone] [facility] PHysical (chief complaint) Encounter for general adult medical exam w abnormal findingsMale erectile dysfunction, unspecifiedEssentia l (primary) hypertensionPolydip gabriel 201 9 Roel Gamino. [address], [place], [place], [address] , [place]. tel: [phone] Referring Provider: Collin Riddle [address] [facility] [address], [place], [place], [address]. tel:[phone] Family History Family Member Type Diagnosis Age At Onset Mother Problem (finding) Diabetes mellitus Brother Problem (finding) autism Father Problem (finding) of brain CA 33 Mother Problem (finding) Depression Payers Payer name Insurance type Covered democrat ID Authoriza tion(s) No Information Social History Type Description Quantity Date Captured Comments Alcohol Use Details beer & liquor Caffeine Use Details Unknown Tobacco Use Status Current non-smoker Smoking Status Never smoker Non-Smoking Tobacco Use Details : No Details Available : No Details Available Sex Male Vital Signs Date / Time: Height Weight BMI Pulse Rate Blood Pressure Temperature Respiratory Rate Body Surface Area Head Circumference BMI percentile Pulse Ox Inhaled Ox 4:32 PM 73.00 in 190.20 lbs 25.0 9 kg/m eter (2) 80 /min 130/75 mm[Hg] 98.1 F 16 /min Chief Complaint And Reason For Visit From encounter dated '07/10/2021 16:29'. ear tingling1 (chief complaint). Description: Pt c/o tingling feeling bilateral ear lobe and insideboth ear for 3-4 weeks. Pt denies any ear pain or hearing loss Pt denies any drainage Pt denies anytinnitus Pt has not swam for a while Pt states that it occurs almost daily lasting 3-5 mins and goes away. Pt denies any ear pain lymph node1 (chief complaint). Description: Pt notices pain and enlarge right side cervical lymph node last week for 2-3 days but went away. Pt denies any fever, sore throat, cough or headache. or rash cold toes1 (chief complaint). Description: Pt c/o cold toes all the time with some numbness and tinging and pins and needle feeling only around toes for 2-3 weeks, Pt denies any foot claudication. ED1 (chief complaint). Description: Pt has been having ED pt states that he sometimes does not feelthe pleasure when he has sex. Pt denies any testicular pain or atrophy or nodule anxiety1 (chief complaint). Description: Pt has chronic anxiety and depression ,Pt takes cymbalta and doing ok. Pt denies any suicidal or homicidal thought ,Pt denies any crying spells thyroid1 (chief complaint). Description: Pt has normal TSH but elevated TPO. Pt denies any thyroid area pain, dysphagia or neck pain Pt still has not done thyroid ultrasound yet Plan Of Treatment Date Type Action Status Referral Ordered: Rheumatology (related to Raised antibody titer) ordered Referral Ordered: US THYROID ordered Referral Ordered: Referrals: Rheumatology. Evaluate and treat ordered Referral Ordered: MRI BRAIN W/O & W/DYE ordered History Of Present Illness Encounter Date Complaint History Of Prese nt Illness ear tingling1 Pt c/o tingling feeling bilateral ear lobe and inside both ear for 3-4 weeks. Pt denies any ear pain or hearing loss Pt denies any drainage Pt denies any tinnitus Pt has not swam for a while Pt states that it occurs almost daily lasting 3-5 mins and goes away. Pt denies any ear pain ED1 Pt has been havi ng ED pt states that he sometimes does not feel the pleasure when he has sex. Pt denies any testicular pain or atrophy or nodule cold toes1 Pt c/o cold toes all the time with some numbness and tinging and pins and needle feeling only around toes for 2-3 weeks, Pt denies any foot claudication. lymph node1 Pt notices pain and enlarge right side cervical lymph node last week for 2-3 days but went away. Pt denies any fever, sore throat, cough or headache. or rash thyroid1 Pt has normal TS H but elevated TPO. Pt denies any thyroid area pain, dysphagia or neck pain Pt still has not done thyroid ultrasound yet anxiety1 Pt has chronic a nxiety and depression ,Pt takes cymbalta and doing ok. Pt denies any suicidal or homicidal thought ,Pt denies any crying spells joint pain1 Pt has frequent low back, foot, hip pain, Pt denies any injury. Pt had negative rheumatology work up Pt denies any sciatica or any numbness. Pt denies any loss of bowel or bladder control. Pt does heavy labor work TPO Pt has high TPO but TSH ok. Pt denies any dysphagia or neck pain. Pt still has not done thyroid ultrasound yet anxiety1 Pt has chronic a nxiety and mild depression Pt denies any suicidal or homicidal thought Pt denies any crying spells. Pt doing ok with cymbalta higher dose. However, he feels frequent diffuse sweating almost like hot flash lasting seconds intermittently throughout the day rash The patient pres ents for rash. Additional information: Pt was cleaning up pound last Thursday and he got in contact with some plant and he started to have diffuse itching with small vesicles around left arm and then spreading to leg and torso. Pt notices clear fluid drainage. Pt denies any sob or dysphagia or fever or sick contactclean up a pounds. thyroid1 Pt has not done thyroid ultrasound yet Pt denies any dysphagia or neck pain anxiety1 Pt has chronic a nxiety and mild depression and he feels irritable with mood swings with frequent panic attacks. Pt states that cymbalta has helped very much for above symptoms .He feels better mood and less anxious without any panic attacks pt denies any side effects pt denies any suicidal or homicidal thought, Pt denies any crying spells. Pt states that it also helped him with pain and paresthesia. Pt states that he is feeling about 50 % improvement STUART Pt has raised AN A with some diffuse joint pain, headache and paresthesia. Pt was evaluated by rheumatology and nothing was diagnosed. Pt does not have ay known connective tissue disease. Rheumatology thinks he may have spinal stenosis with neuropathy pt does have mild low back pain Pt denies any loss of bladder control. Pt could not tolerate NSAID panic1 Pt was under a l ot of stress lately and he was at work 8 days ago and had some stress and he suddenly noticed weakness, diffuse tingling, abdominal discomfort, hyperventilation, difficulty with swallowing, sweaty, etc Pt notices some chest pain which radiated to his throat area as well. pt feels very anxious and he went to ER and work up was negative and he was diagnosed with panic attacks. Pt states that he does have chronic anxiety Pt denies any depression or any suicidal or homicidal thought Pt also has frequent crying spells panic Additional infor mation: Pt denies any dysphagia or neck pain Pt has not done thyroid ultrasound yet. STUART Pt has elevated STUART, which is nuclear speckle patterned. Pt has multiple vague symptoms including polyarthralgia, headache, neuropathy, headache, etc, His MRI of brain is normal. TPO Pt has elevated TPO. Pt does not have any family history of thyroid condition, His TSH is ok. .Pt denies any dysphagia or neck pain pain Pt c/o chronic l ow back pain and hip pain. Pt c/o knee, shoulder pain, ankle pain. Pt denies any swelling or redness or warmth .PT denies any injury ,Pt c/o sciatica and leg numbness and tingling. Pt states that above symptoms started 8 years ago. Pt denies any loss of bladder control. Pt also c/o pain behind shoulders and upper back. Pt has been taking a lot of NSAID daily . heat intolerance1 pt feels heat intolerance Pt states that he has to keep his room temp to 65 at night. Pt feels sweaty a lot .Pt has poor sleep Pt denies any night sweat Pt denies any fever, chill Pt denies any weight loss Pt denies any coughing urinary urgency1 Pt c/o the urge to urinate constantly Pt denies any urgency. Pt states that he notices some bright red blood per rectum when he wipes recently. Pt feel very heat intolerance headache1 Pt c/o chronic h eadache, blurred vision, not able to think clearly, generalized dizziness, feeling very fatigued and he feels weakness all over his body. Pt states that he just feel bad overall for several years . PHysical Pt needs annual physical. Pt has erectile dysfunction for the past 1.5 years pt has good libido. Pt denies any testicular pain or nodule or atrophy. Pt denies any penile discharge. Pt c/o feeling thirsty with frequent urination since 10 days ago. Pt feels mild fatigue. Pt feels very hot overall. Pt denies any acute vision loss or blurred vision. Pt denies any dysuria, Pt denies any difficulty with urination. Pt denies any sweaty or night sweat Pt denies any recent travel or sick contact. Pt denies any other complaints. Pt state that he recently went to urgent care for some nausea and he was given zofran and his GI symptoms resolved now Instructions Date Instruction Additional Infor misti Increase physical activity Relat ed to Encounter for general adult medical exam w abnormal findings Assessments Type Assessment Date assessment Raynaud's disease without gangre ne assessment Male erectile dysfunction, unspe cified assessment Generalized Anxiety Disorder Jul assessment Lymphadenopathy assessment Thyroiditis assessment Paresthesia of skin Mental Status Date Cognitive Assessment Orientation - [place] ed to time, place, person, situation.
--- OUTSIDE RECORDS SUMMARY | 2025-02-09 09:39 | XMS_ITS | Clinical Summary ---
Author Organization [facility] Address [address] [place] [address] Care Team Providers Care Refractory Tile Helper Name Role Phone Kasey Pierson MD Primary Care Provider [phone] Allergies No known active allergies Medications nabumetone (RELAFEN) 750 MG tabletIndication s:Polyarthralgia Take 1 tablet (750 mg total) by mouth 2 (two) times daily as needed for Pain. Take with food. 180 tablet 11/04/2022 Active Active Problems Problem Noted Date Diagnosed Date Chronic bilateral low back pain 09/03/2020 Overview (10/28/2022): X-rays (09/03/2020): C-spine: minimal reversal of lordosis T-spine: negative L-spine: 2-3mm retrolisthesis L5 on S1 Pelvis: decreased right femoral head/neck offset which could predispose towards cam-type femoral acetabular impingement. Last Assessment & Plan: Radiographs revealed minimal reversal of cervical lordosis, normal thoracic spine, and 2-3mm retrolisthesis of L5 on S1. Pelvis x-ray revealed decreased right femoral head/neck offset which could predispose towards cam-type femoral acetabular impingement. Continues to c/o sharp, shock-like pain in his low back and alternating buttock pain that radiates down his legs with forward flexion. Symptoms respond to prednisone 20mg, ibuprofen otc, and tylenol. Symptoms remain suspicious for mechanical pain vs degenerative changes vs inflammatory arthritis. Will give order for PT. Start nabumetone 750mg BID. If no benefit, will consider further evaluation with MRI. Polyarthralgia 09/03/2020 Overview (10/28/2022): Labs (09/03/2020): negative. HLA-B27 neg AVISE (09/03/2020): STUART pos by desiree neg by IFA; anti-TG (374), anti-TPO (548), anti-C1q (67) Hepatitis negative: 08/2020 TB quant negative: 08/2020 X-rays (09/03/2020): C-spine: minimal reversal of lordosis T-spine: negative L-spine: 2-3mm retrolisthesis L5 on S1 Pelvis: decreased right femoral head/neck offset which could predispose towards cam-type femoral acetabular impingement. B/t feet: negative CXR: negative US L foot and ankle (09/10/2020): Lateral recess with what appears to be a single multi-lobulated cystic structure vs two separate cysts without hyper-echoic fluid or power Doppler activity. The area is compressible on examination compatible with possible ganglion cyst. 3rd MTP with grade 1 effusion and grade 1 power Doppler, all other joints are normal. Plantar fascia is at the upper limit of normal but without power Doppler and has otherwise normal appearance. These findings on examination will have to be correlated clinically. Last Assessment & Plan: US L foot and ankle (09/10/2020): Lateral recess with what appears to be a single multi-lobulated cystic structure vs two separate cysts without hyper-echoic fluid or power Doppler activity. The area is compressible on examination compatible with possible ganglion cyst. 3rd MTP with grade 1 effusion and grade 1 power Doppler, all other joints are normal. Plantar fascia is at the upper limit of normal but without power Doppler and has otherwise normal appearance. These findings on examination will have to be correlated clinically. Serologies revealed a positive anti-TG (374) and anti-TPO (548) however previous TSH was normal. Pcp is considering a thyroid US. HLA-B27 was negative. Radiographs revealed 2-3mm retrolisthesis of L5 on S1 and decreased right femoral head/neck offset but were otherwise normal in the cervical spine, thoracic spine, and bilateral feet. Continues to complain of chronic low back/hip pain as well as pain in his hands. Synovitis and tenderness noted in the left 2nd PIP joint on exam today. US findings are unremarkable overall and radiographs revealed degenerative changes. Symptoms remain suspicious for spinal stenosis vs sciatica vs inflammatory arthritis. Will start nabumetone 750mg BID. Discussed side effects of the medication, including but not limited to GI upset, kidney, and ulcers. Will give order for PT as well. Follow up in 8 weeks. Sooner if needed. Seen with Dr. Huitron. Immunizations Name Administration Dates Next Due Tdap (Generic) 11/25/2021 Family History Medical History Relation Comments Diabetes Brother Cancer Father Early Father Stroke Maternal Grandmother Depression Mother Diabetes Mother Stroke Paternal Grandfather Relation Status Comments Brother Father Maternal Grandmother Mother Paternal Grandfather Social History Tobacco Use Types Packs/Day Years Used Date Smoking Tobacco: Never Smokeless Tobacco: Never Tobacco Cessation:Counseling Given: Yes Comments:Counseled by Dr Pierson Alcohol Use Standard Drinks/Week Comments Yes 20 (1 standard drink = 0.6 oz pu re alcohol) Sex and Gender Information Value Date Recorded Sex Assigned at Not on file Legal Sex Male 2:16 PM SCIENCE TECHNICIAN Gender Identity Not on file Sexual Orientation Not on file Last Filed Vital Signs Vital Sign Reading Time Taken Comments Blood Pressure 129/86 10/28/2022 1:58 PM SCIENCE TECHNICIAN Pulse 63 10/28/2022 1:58 PM SCIENCE TECHNICIAN Temperature 36.9 C (98.5 F) 10/28/2022 1:58 PM SCIENCE TECHNICIAN Respiratory Rate 18 10/28/2022 1:58 PM SCIENCE TECHNICIAN Oxygen Saturation 99% 10/28/2022 1:58 PM SCIENCE TECHNICIAN Inhaled Oxygen Concentration - - Weight 88 kg (194 lb) 10/28/2022 1:58 PM SCIENCE TECHNICIAN Height 185.4 cm (6' 1 ) 10/28/2022 1:58 PM SCIENCE TECHNICIAN Body Mass Index 25.6 10/28/2022 1:58 PM SCIENCE TECHNICIAN Plan of Treatment Health Maintenance Due Date Last Done Comments Hepatitis B Vaccines (1 of 3 - 19+ 3-dose series) 2009 Annual Physical 10/28/2023 10/28/2022 COVID-19 Vaccine ( - 2023-2 5 season) 2024 PHQ-2 (Physician Kingsley) 11/09/2024 DTaP, Tdap and Td Vaccines ( 2 - Td or Tdap) 11/25/2031 11/25/2021 Hepatitis C Completed 10/28/2022 HPV Vaccines Aged Out No longer eligi ble based on patient's age to complete this topic Meningococcal B Vaccine Aged Out No l onger eligible based on patient's age to complete this topic Meningococcal Vaccine Aged Out No hans heidi eligible based on patient's age to complete this topic Pneumococcal Vaccine: Pediat rics (0 to 5 Years) and At-Risk Patients (6 to 64 Years) Aged Out No longer eligi ble based on patient's age to complete this topic RSV Immunizations Under 20 Months Aged Out No longer eligible based on patient's age to complete this topic Procedures Procedure Name Priority Date/Time Associated Diagnosis Comments HEPATITIS C ANTIBODY Routine 10/28/2022 3:05 PM SCIENCE TECHNICIAN Annual physical exam Encounter for medical examination to establish care General medical exam Encounter for hepatitis C screening test for low risk patient from Last 3 Months or Most Recently Relevant to Health Maintenance Results * HEPATITIS C ANTIBODY (10/28/2022 3:05 PM SCIENCE TECHNICIAN) HEPATITIS C AB NON-REACTI VE NON-REACT RUBY 10/29/2022 6:43 PM SCIENCE TECHNICIAN [facility] Comment: ANTIBODIES TO HCV NOT DETECTED. DOES NOT EXCLUDE THE POSSIBILITY OF EXPOSURE TO HCV. 10/28/2022 3:05 PM SCIENCE TECHNICIAN Kasey Pierson MD LABORATORY Final Result [facility] [address] [place] [address], [id number] from Last 3 Months or Most Recently Relevant to Health Maintenance [place] [address] [place] [address] Care Teams Refractory Tile Helper Relationship Specialty Start Date End Date Kasey Pierson MD [address] [facility] [address] [place] [id number] PCP - General INTERNAL MEDICINE 10/28/22
--- OUTSIDE RECORDS SUMMARY | 2025-02-09 09:39 | XMS_ITS | Clinical Summary ---
Author Organization [facility] Address [address] [place] [address] Phone Care Team Providers Care Plaster Mold Maker Name Role Phone Unavailable Primary Care Provider Unavailabl e Medications esomeprazole (NexIUM) 20 mg Capsule, Delayed Release(E.C.) Take 1 Capsule (20 mg) by mouth daily before breakfast. 20 Capsule 04/07/2023 5:38 PM CDT 04/07/2023 Active ondansetron (ZOFRAN ODT) 4 mg Tablet, Rapid Dissolve Place 1 Tablet (4 mg) under tongue every 8 hours as needed for Nausea/Vomit ing. 15 Tablet 04/07/2023 5:38 PM CDT 04/07/2023 Active Social History Tobacco Use Types Packs/Day Years Used Date Smoking Tobacco: Never Assessed Feeling Safe Answer Date Recorded Are you in a relationship wi th someone who hurts you emotionally and/or physically? No 04/07/2023 Sex and Gender Information Value Date Recorded Sex Assigned at Not on file Legal Sex Male 9:27 AM CDT Gender Identity Not on file Sexual Orientation Not on file Last Filed Vital Signs Vital Sign Reading Time Taken Comments Blood Pressure 117/63 04/07/2023 2:00 PM CDT Pulse 57 04/07/2023 2:00 PM CDT Temperature 36.4 C (97.5 F) 04/07/2023 9:38 AM CDT Respiratory Rate 18 04/07/2023 2:00 PM CDT Oxygen Saturation 97% 04/07/2023 2:00 PM CDT Inhaled Oxygen Concentration - - Weight 83.9 kg (185 lb) 04/07/2023 9:38 AM CDT Height 185.4 cm (6' 1 ) 04/07/2023 9:38 AM CDT Body Mass Index 24.41 04/07/2023 9:38 AM CDT Plan of Treatment Health Maintenance Due Date Last Done Comments HEPATITIS B VACCINES (1 of 3 - 19+ 3-dose series) 2009 INFLUENZA VACCINE (#1) 2024 DTAP/TDAP/TD VACCINES (2 - T d or Tdap) 11/25/2031 11/25/2021 HPV VACCINES Aged Out No longer eligi ble based on patient's age to complete this topic PNEUMOCOCCAL VACCINE 0-49 YEARS Aged Out No longer eligible based on patient's age to complete this topic Insurance [employer]
--- OUTSIDE RECORDS SUMMARY | 2025-02-09 09:39 | XMS_ITS | Clinical Summary ---
Author Organization [facility] [address] [facility] Address [address] [place] [address] Care Team Providers Care Electromechanical Equipment Tester Name Role Phone Micah Huitron MD Unavailable Kasey Pierson MD Primary Care Provider [phone] Allergies No known active allergies Medications meloxicam (MOBIC) 15 mg tablet Take 1 tablet (15 mg total) by mouth daily 30 tablet 1 3 Active ondansetron ODT (ZOFRAN-ODT) 4 mg disintegrating tablet Take 1 tablet (4 mg total) by mouth every 8 (eight) hours as needed for nausea or vomiting 20 tablet 3 Active Active Problems Problem Noted Date Diagnosed Date Polyarthralgia 09/03/2020 Overview (02/05/2023): Labs (09/03/2020): negative. HLA-B27 neg AVISE (09/03/2020): STUART pos by desiree neg by IFA; anti-TG (374), anti-TPO (548), anti-C1q (67) Labs 12/31/22: Glucose 61, cbc nl, esr 2, crp 1.0 mg/L Hepatitis negative: 08/2020 TB quant negative: 08/2020 XR 02/02/23: SI joints: unremarkable L-spine: unremarkable X-rays (09/03/2020): C-spine: minimal reversal of lordosis [...] power Doppler and has otherwise normal appearance. US L foot and ankle (02/04/2023): Grade 1 power Doppler within the tibial talar joint. Grade 1 effusion of the flexor digitorum tendon sheath and the 1st and 4th MTPJ. Very small enthesophyte along the distal Achilles insertion. These findings on examination are compared to previous exam from 09/10/20 showing no evidence of previously seen lateral recess cyst, there is improvement in plantar fascia thickness and effusion/power Doppler within the 3rd MTPJ. However small effusions are seen in the 1st and 4th MTPJ and the flexor digitorum tendon sheath on current exam. No erosions or significant inflammatory signal is seen. Recommend clinical correlation. Assessment & Plan (12/31/2022 4:40 PM DNA SEQUENCING ASSOCIATE): 32-year-old male returning for re-evaluation of back pain that radiates down his legs and into his feet. Exacerbated by forward flexion and responds to prednisone. Previous HLA-B27 was negative. C/o pain in the left ankle with SQ nodularity which previous US suggested as possible cystic structure. There is no obvious peripheral synovitis or tenderness noted on peripheral exam today. Symptoms and exam are suspicious for spinal stenosis vs sciatica vs mechanical pain from DJD. Symptoms are less suspicious for an inflammatory component however will repeat imaging to further evaluate for any changes to suggest inflammatory vs degenerative involvement. Will order appropriate serologies, radiographs, and a left foot/ankle US to further evaluate. Will start PT and meloxicam 15mg daily. Discussed side effects of the medication, including but not limited to GI upset, kidney, and ulcers. If no significant relief with PT, then would consider MRI next. Follow up in 6-8 weeks. Sooner if needed. Seen with Dr. Huitron. Assessment & Plan (09/19/2020 3:11 PM DNA SEQUENCING ASSOCIATE): US L foot and ankle (09/10/2020): Lateral [...] Sooner if needed. Seen with Dr. Huitron. Assessment & Plan (09/03/2020 10:40 AM CDT): Patient presents with chronic electric, shock-like low back/hip pain, alternating buttock pain that radiates down his legs, fatigue, and intermittent pain/swelling in his left ankle and knee. Recent brain MRI per pcp was normal. Symptoms responded to prednisone 20mg daily as well as brief relief with ibuprofen otc and tylenol. Denies personal or FHx of IBD or psoriasis. No obvious synovitis or tenderness noted on peripheral exam today. Tenderness noted in the thoracic and lumbar spine as well as bilateral SI joints. Symptoms and exam are suspicious for ankylosing spondylitis vs spinal stenosis vs sciatica vs degenerative changes. Will order appropriate serologies, radiographs, and a left foot/ankle US to further evaluate. Will start nabumetone 750mg BID prn pain. Discussed side effects of the medication, including but not limited to GI upset, kidney, and ulcers. Follow up in 2 weeks. Sooner if needed. Seen with Dr. Huitron. Chronic bilateral low back pain 09/03/2020 Overview (09/05/2020): X-rays (09/03/2020): C-spine: minimal reversal of lordosis T-spine: negative L-spine: 2-3mm retrolisthesis L5 on S1 Pelvis: decreased right femoral head/neck offset which could predispose towards cam-type femoral acetabular impingement. Assessment & Plan (09/19/2020 3:01 PM DNA SEQUENCING ASSOCIATE): Radiographs revealed minimal reversal of cervical lordosis, [...] benefit, will consider further evaluation with MRI. Assessment & Plan (09/03/2020 10:29 AM CDT): Reports chronic spinal pain in his thoracic and lumbar spine as well as sharp, shock-like pain in his low back and alternaing buttock pain that radiates down his legs with forward flexion. Symptoms respond to prednisone 20mg, ibuprofen otc, and tylenol. Symptoms suspicious for ankylosing spondyloarthritis vs mechanical pain vs degenerative changes. Will check x-rays. May need to consider an MRI for further evaluation in the future. Fatigue 09/03/2020 Assessment & Plan (09/03/2020 10:27 AM CDT): Reports fatigue worse in mid-afternoon. Reports this was significantly improved with prednisone 20mg daily but would wear off by the end of the day. Could be related to underlying autoimmune disease vs possible adrenal insufficiency. Social History Tobacco Use Types Packs/Day Years Used Date Smoking Tobacco: Never Personal Safety Answer Date Recorded Getting School Help Needed Not on file 04/09 Sex and Gender Information Value Date Recorded Sex Assigned at Not on file Legal Sex Male 3:46 PM DNA SEQUENCING ASSOCIATE Gender Identity Male 08/27/2020 10:33 AM CDT Sexual Orientation Straight 08/27/2020 10 :33 AM CDT Obstetrics History Last Filed Vital Signs Vital Sign Reading Time Taken Comments Blood Pressure 128/79 03/23/2023 4:30 AM CDT Pulse 70 03/23/2023 4:30 AM CDT Temperature 36.9 C (98.5 F) 03/23/2023 1:15 AM CDT Respiratory Rate 18 03/23/2023 1:15 AM CDT Oxygen Saturation 97% 03/23/2023 4:30 AM CDT Inhaled Oxygen Concentration - - Weight 83.9 kg (185 lb) 03/23/2023 1:15 AM CDT Height 185.4 cm (6' 1 ) 03/23/2023 1:15 AM CDT Body Mass Index 24.41 03/23/2023 1:15 AM CDT Plan of Treatment Health Maintenance Due Date Last Done Comments Depression Screening 1990 Varicella Vaccines (1 of 2 - 13+ 2-dose series) 2003 Hepatitis B Screening 2008 Regular Well Visit/Exam 18-64 2008 Influenza Vaccine (#1) 2024 DTaP/Tdap/Td Vaccine (2 - Td or Tdap) 11/25/2031 11/25/2021 Hepatitis C Screening Completed 09/03/2020 HPV Vaccines Aged Out No longer eligi ble based on patient's age to complete this topic Pneumococcal vaccine <65 Aged Out No longer eligible based on patient's age to complete this topic Procedures Procedure Name Priority Date/Time Associated Diagnosis Comments HEPATITIS PANEL, ACUTE Routine 09/03/2020 10:35 AM CDT Polyarthralgia Fatigue, unspecified type from Last 3 Months or Most Recently Relevant to Health Maintenance Results * Hepatitis panel, acute (09/03/2020 10:35 AM CDT) Hep A IgM NON-REACTI VE NON-REACT RUBY [facility] Comment: For additional information, please refer to http://education.[facility].com/faq/DBY046 (This link is being provided for informational/ educational purposes only.) HepBsAg NON-REACTI VE NON-REACT RUBY [facility] Hep B core IgM NON-REACTI VE NON-REACT RUBY [facility] Hep C Ab NON-REACTI VE NON-REACT RUBY [facility] SIGNAL TO CUT-OFF 0.01 <1.00 [facility] Comment: HCV antibody was non-reactive. There is no laboratory evidence of HCV infection. In most cases, no further action is required. However, if recent HCV exposure is suspected, a test for HCV RNA (test code 75341) is suggested. For additional information please refer to http://[employer]/faq/LHK97v7 (This link is being provided for informational/ educational purposes only.) Blood specimen (specimen) 09/03/2020 10:35 AM CDT 09/03/2020 10:37 AM CDT [facility] MICRO[facility] - NERAL ORDERABLES Final Result [facility] [address] [place] [address] from Last 3 Months or Most Recently Relevant to Health Maintenance Insurance [facility] BLUE ACC CHOICE OOS BLUE ACC CHOICE OOS Care Teams Electromechanical Equipment Tester Relationship Specialty Start Date End Date Kasey Pierson MD [address] [place] [id number] PCP - General Internal Medicine 03/23/23 Micah Huitron MD [address] [place] [address] Consulting Physician Rheumatology 08/21/20
--- OUTSIDE RECORDS SUMMARY | 2025-02-09 09:39 | XMS_ITS | Referral Summary ---
Author Organization [facility] [address] [facility] Address [address] [place] [address] Care Team Providers Care Litigation Legal Assistant Name Role Phone Micah Huitron MD Unavailable [phone] Kasey Pierson MD Primary Care Provider [phone] Allergies No known active allergies Medications meloxicam [...] correlation. Assessment & Plan (12/31/2022 4:40 PM HIGH DENSITY PRESS OPERATOR): 32-year-old male returning for re-evaluation of back [...] Huitron. Assessment & Plan (09/19/2020 3:11 PM HIGH DENSITY PRESS OPERATOR): US L foot and ankle (09/10/2020): Lateral [...] impingement. Assessment & Plan (09/19/2020 3:01 PM HIGH DENSITY PRESS OPERATOR): Radiographs revealed minimal reversal of cervical lordosis, [...] on file Legal Sex Male 3:46 PM HIGH DENSITY PRESS OPERATOR Gender Identity Male 08/27/2020 10:33 AM CDT Sexual Orientation Straight 08/27/2020 10 :33 AM CDT Last Filed Vital Signs Vital Sign Reading [...] 03/23/2023 1:15 AM CDT Plan of Treatment Not on file Procedures Procedure Name Priority Date/Time Associated Diagnosis Comments HEPATITIS PANEL, ACUTE Routine 09/03/2020 10:35 AM CDT Polyarthralgia Fatigue, unspecified type from Last 3 Months or Most Recently Relevant to Health Maintenance Results * Hepatitis panel, acute (09/03/2020 10:35 AM CDT) Hep A IgM NON-REACTI VE NON-REACT RUBY [facility] Comment: For additional information, please refer to http://education.[employer]/faq/VVV010 (This link is being provided for informational/ [...] a test for HCV RNA (test code 71116) is suggested. For additional information please refer to http://education.[employer]/faq/DFZ89g5 (This link is being provided for informational/ educational purposes only.) Blood specimen (specimen) 09/03/2020 10:35 AM CDT 09/03/2020 10:37 AM CDT [facility] MICRO[facility] - NERAL ORDERABLES Final Result [facility] [address] [place] [id number] from Last 3 Months or Most Recently Relevant to Health Maintenance Insurance [facility] [employer] BLUE ACC CHOICE OOS BLUE ACC CHOICE OOS Care Teams Litigation Legal Assistant Relationship Specialty Start Date End Date Kasey Pierson MD [address] [place] [address] PCP - General Internal Medicine 03/23/23 Micah Huitron MD [address] [place] [address] Consulting Physician Rheumatology 08/21/20
[2025-02-09] MEDS: KETOROLAC 30 MG/ML VIAL (*BKC) IM (09:42)
[2025-02-09] MEDS: ORPHENADRINE CITRATE 30 MG/ML 2 ML VIAL 60 MG IM (09:43)
--- NOTE | 2025-02-09 10:35 | PC.NURSE ---
ERP offered morphine for pain control, patient refused.
--- NOTE | 2025-02-09 10:36 | ED.BACK ---
HPI - Back Pain/Injury General Chief Complaint: Back Pain/Injury Stated Complaint: back pain Time Seen by Provider: 02/09/25 09:32 Source: patient Mode of arrival: ambulatory Limitations: no limitations History of Present Illness HPI Narrative: this is a 34-year-old male no significant past medical history, although he does have a history of low back pain and injured his back while lifting earlier today causing a spasm to his left lower back area with no radiation of his pain no numbness or tingling going down his legs no saddle paresthesias no fever chills no chest pain no abdominal pain no dysuria hematuria. MD elicited complaint: back pain Pertinent past history: prior back pain Onset (ago): hour(s) Timing: constant Severity: severe Pain scale (0-10): 10 Quality: dull and spasming Location: lumbar spine Exacerbating factors: movement Relieving factors: immobilization Context: while lifting and turning/twisting Related Data Allergies Allergy/AdvReac Type Severity Reaction Status Date / Time No Known Allergies Allergy Unknown Verified 02/09/25 09:30 Review of Systems Review of Systems: All systems reviewed & are unremarkable except as noted in HPI and below PMFSH Past Medical History Medical History Healthy adult male Surgical History Surgical History No history of previous surgery Social History Social History Alcohol intake: current Gender identity (if verbalized by the patient): Male Exam Const: General: healthy appearing, no acute distress and alert Nutritional Appearance: well nourished Orientation/consciousness: patient oriented x3 Neck: Neck: normal visual inspection and no lymphadenopathy Chest: Chest palpation & inspection: normal inspection of the chest Resp: Effort & Inspection: normal respiratory effort Auscultation: clear to auscultation bilaterally Cardio: Rate: regular rate Rhythm: regular rhythm GI: Auscultation: normal bowel sounds : General: Yes bladder normal to palpation Urinary Catheter: Urinary Catheter: patent and draining Skin: General skin exam: normal color Rashes: no rashes Neuro: General: patient oriented x3, moves all extremities, no meningeal signs and no focal motor deficits Course Course Emergency Course: CT scan performed and reviewed with patient the patient did received Toradol IM, and a dose of muscle relaxant. Advised to follow up with his primary and take medicine as prescribed. Vital Signs Vital signs: Vital Signs Temperature 36.7 C 02/09/25 09:23 Pulse Rate 70 02/09/25 09:23 Respiratory Rate 16 02/09/25 09:23 Blood Pressure 138/96 H 02/09/25 09:23 Pulse Oximetry 98 02/09/25 09:23 Oxygen Delivery Room Air 02/09/25 09:23 Temperature 36.7 C 02/09/25 09:23 Pulse Rate 70 02/09/25 09:23 Respiratory Rate 16 02/09/25 09:23 Blood Pressure 138/96 H 02/09/25 09:23 Pulse Oximetry 98 02/09/25 09:23 Oxygen Delivery Room Air 02/09/25 09:23 Critical Care Time Critical Care Time Critical Care Time: No Discharge Plan Discharge Clinical Impression: Lumbar radiculopathy Strain of lumbar region Qualifiers: Encounter type: initial encounter Qualified Code(s): S39.012A - Strain of muscle, fascia and tendon of lower back, initial encounter Patient Disposition: Home, Self-Care Condition: Stable Instructions: Antibiotic Form, Acute Low Back Pain (ED) Additional Instructions: Advised to take medication as prescribed by a primary care physician for further evaluation treatment. Patient Language: Azeri Prescriptions: New naproxen 500 mg tablet 500 mg PO BID Qty: 14 0RF cyclobenzaprine 10 mg tablet 10 mg PO TID Qty: 20 0RF No Action ondansetron 4 mg tablet,disintegrating 4 mg PO Q8H PRN (Reason: nausea and vomiting) Qty: 14 0RF amoxicillin-pot clavulanate 875-125 mg tablet 1 tablet PO Q12H Qty: 14 0RF Follow-up/Referrals: Peter Deng DO [Primary Care Provider] - Time of Disposition: 10:41
[2025-02-09 10:47] VITALS: BP 117/62; PULSE 69; RESP 17; TEMP 36.9; O2SAT 99
--- OUTSIDE RECORDS SUMMARY | 2025-02-09 11:28 | XMS_ITS | Referral Summary ---
Author Organization [facility] [address] [facility] Address [address] [place] [address] Care Team Providers Care Data Systems Manager Name Role Phone Micah Huitron MD Unavailable [phone] Kasey Pierson MD Primary Care Provider [phone] Allergies No known active allergies Medications meloxicam [...] correlation. Assessment & Plan (12/31/2022 4:40 PM IDEA MAN): 32-year-old male returning for re-evaluation of back [...] Huitron. Assessment & Plan (09/19/2020 3:11 PM IDEA MAN): US L foot and ankle (09/10/2020): Lateral [...] impingement. Assessment & Plan (09/19/2020 3:01 PM IDEA MAN): Radiographs revealed minimal reversal of cervical lordosis, [...] on file Legal Sex Male 3:46 PM IDEA MAN Gender Identity Male 08/27/2020 10:33 AM CDT [...] Comment: For additional information, please refer to http://education.Innohat/faq/GOI399 (This link is being provided for informational/ [...] a test for HCV RNA (test code 80680) is suggested. For additional information please refer to http://education.Innohat/faq/HBQ13d9 (This link is being provided for informational/ educational purposes only.) Blood specimen (specimen) 09/03/2020 10:35 AM CDT 09/03/2020 10:37 AM CDT [facility] MICROBIOLOGY - NERAL ORDERABLES Final Result [facility] [address] [place] [address] from Last 3 Months or Most Recently Relevant to Health Maintenance Insurance [facility] [employer]ITIONAL BLUE ACC CHOICE OOS BLUE ACC CHOICE OOS Care Teams Data Systems Manager Relationship Specialty Start Date End Date Kasey Pierson MD [address] [place] [address] PCP - General Internal Medicine 03/23/23 Micah Huitron MD [address] [place] [address] Consulting Physician Rheumatology 08/21/20
--- OUTSIDE RECORDS SUMMARY | 2025-02-09 11:28 | XMS_ITS | Continuity of Care Document ---
Author Organization [facility] Address [address] [place] [address] Phone Care Team Providers Care Snowmobile Mechanic Name Role Phone Stevenson Sevilla MD Unavailable [...] Copied on Encounter OFFICE/OUTPA TIENT VISIT, EST [facility], [address] [facility] [place], [place], [id number], [place] tel:[phone] [facility] Medicine ear tingling1 (chief complaint) lymph node1 (chief complaint) cold toes1 (chief complaint) ED1 (chief complaint) anxiety1 (chief complaint) thyroid1 (chief complaint) Raynaud's disease without gangreneMale erectile dysfunction, unspecifiedGenerali zed Anxiety DisorderLymphadenop athyThyroiditisPare sthesia of skin Jul- 1 Roel Gamino. [address], [address], [place], [place], [address] , [place]. tel:[phone] [facility], [address], [place], [place], [address], [place] tel:[phone] [facility] No Information 1 Roel Gamino. [address], [address], [place], [place], [address] , [place]. tel:[phone] OFFICE/OUTPA TIENT VISIT, [facility], [address], [place], [place], [address], [place] tel:[phone] [facility] rash (chief complaint) anxiety1 (chief complaint) TPO (chief complaint) joint pain1 (chief complaint) ThyroiditisGenerali zed Anxiety DisorderGeneralized hyperhidrosisAllerg ic contact dermatitis due to plants, except foodPain in unspecified joint 1 Roel Gamino. [address], [address], [place], [place], [address] , [place]. tel:[phone] Referring Provider: Stevenson Sevilla, [address], [place], [place], [address]. tel:[phone] OFFICE/OUTPA TIENT VISIT, [facility], [address], [place], [place], [address], [place] tel:[phone] [facility] anxiety1 (chief complaint) thyroid1 (chief complaint) Generalized Anxiety DisorderThyroiditis Feb- 1 Roel Horton [address], [address], [place], [place], [address] , [place]. tel:[phone] Referring Provider: Stevenson Sevilla [address], [place], [place], [address]. tel:[phone] OFFICE/OUTPA TIENT VISIT, [facility], [address], [place], [place], [address], [place] tel:[phone] [facility] panic (chief complaint) panic1 (chief complaint) STUART (chief complaint) ThyroiditisRaised antibody titerGeneralized Anxiety Disorder Mar-0 3-202 1 Roel Gamino. [address], [address], [place], [place], [address] , [place]. tel:[phone] Referring Provider: oCllin Riddle [address], [place], [place], [address]. tel:[phone] OFFICE/OUTPA TIENT VISIT, [facility], [address], [place], [place], [address], [place] tel:[phone] [facility] TPO (chief complaint) STUART (chief complaint) Raised antibody titerThyroiditisNeu ropathyPain in unspecified joint 0 Roel Gamino. [address], [place], [place], [address] , [place]. tel:[phone] Referring Provider: Collin Riddle [address] [facility] [address], [place], [place], [address]. tel:[phone] OFFICE/OUTPA TIENT VISIT, [facility], [address], [place], [place], [address], [place] tel:[phone] [facility] pain (chief complaint) headache1 (chief complaint) urinary urgency1 (chief complaint) heat intoleranc e1 (chief complaint) PolyuriaPain in unspecified jointHeadacheNeurop athy 0 Roel Gamion. [address], [place], [place], [address] , [place]. tel:[phone] Referring Provider: Collin Riddle [address], [place], [place], [address]. tel:[phone] PREV VISIT, NEW, AGE 18-39 [facility], [address], [place], [place], [address], [place] tel:[phone] [facility] PHysical (chief complaint) Encounter for general adult medical exam w abnormal findingsMale erectile dysfunction, unspecifiedEssentia l (primary) hypertensionPolydip gabriel 201 [address] Roel Gamino. [address], [place], [place], [address] , [place]. tel: [phone] Referring Provider: Collin Riddle [address] [facility] [address], [place], [place], [address]. tel:[phone] Family History Family Member Type Diagnosis Age At Onset Mother Problem (finding) Diabetes mellitus Brother Problem (finding) autism Father Problem (finding) of brain CA 33 Mother Problem (finding) Depression Payers Payer name Insurance type Covered republican ID Authoriza tion(s) No Information Social History [...] Date Complaint History Of Prese nt Illness anxiety1 Pt has chronic a nxiety and depression ,Pt takes cymbalta and doing ok. Pt denies any suicidal or homicidal thought ,Pt denies any crying spells thyroid1 Pt has normal TS H but elevated TPO. Pt denies any thyroid area pain, dysphagia or neck pain Pt still has not done thyroid ultrasound yet lymph node1 Pt notices pain and enlarge right side cervical lymph node last week for 2-3 days but went away. Pt denies any fever, sore throat, cough or headache. or rash cold toes1 Pt c/o cold toes all the time with some numbness and tinging and pins and needle feeling only around toes for 2-3 weeks, Pt denies any foot claudication. ED1 Pt has been havi ng ED pt states that he sometimes does not feel the pleasure when he has sex. Pt denies any testicular pain or atrophy or nodule ear tingling1 Pt c/o tingling feeling bilateral ear lobe and inside both ear for 3-4 weeks. Pt denies any ear pain or hearing loss Pt denies any drainage Pt denies any tinnitus Pt has not swam for a while Pt states that it occurs almost daily lasting 3-5 mins and goes away. Pt denies any ear pain rash The patient pres ents for rash. Additional information: Pt was cleaning up pound last Thursday and he got in contact with some plant and he started to have diffuse itching with small vesicles around left arm and then spreading to leg and torso. Pt notices clear fluid drainage. Pt denies any sob or dysphagia or fever or sick contactclean up a pounds. anxiety1 Pt has chronic a nxiety and mild depression Pt denies any suicidal or homicidal thought Pt denies any crying spells. Pt doing ok with cymbalta higher dose. However, he feels frequent diffuse sweating almost like hot flash lasting seconds intermittently throughout the day TPO Pt has high TPO but TSH ok. Pt denies any dysphagia or neck pain. Pt still has not done thyroid ultrasound yet joint pain1 Pt has frequent low back, foot, hip pain, Pt denies any injury. Pt had negative rheumatology work up Pt denies any sciatica or any numbness. Pt denies any loss of bowel or bladder control. Pt does heavy labor work anxiety Pt has chronic a nxiety and mild [...] he is feeling about 50 % improvement thyroid1 Pt has not done thyroid ultrasound yet Pt denies any dysphagia or neck pain panic Additional infor mation: Pt denies any dysphagia or neck pain Pt has not done thyroid ultrasound yet. panic1 Pt was under a l ot [...] thought Pt also has frequent crying spells STUART Pt has raised AN A with some diffuse joint pain, headache and paresthesia. Pt was evaluated by rheumatology and nothing was diagnosed. Pt does not have ay known connective tissue disease. Rheumatology thinks he may have spinal stenosis with neuropathy pt does have mild low back pain Pt denies any loss of bladder control. Pt could not tolerate NSAID TPO Pt has elevated TPO. Pt does not have any family history of thyroid condition, His TSH is ok. .Pt denies any dysphagia or neck pain STUART Pt has elevated STUART, which is nuclear speckle patterned. Pt has multiple vague symptoms including polyarthralgia, headache, neuropathy, headache, etc, His MRI of brain is normal. headache1 Pt c/o chronic h eadache, blurred vision, not able to think clearly, generalized dizziness, feeling very fatigued and he feels weakness all over his body. Pt states that he just feel bad overall for several years . urinary urgency1 Pt c/o the urge to urinate constantly Pt denies any urgency. Pt states that he notices some bright red blood per rectum when he wipes recently. Pt feel very heat intolerance heat intolerance1 pt feels heat intolerance Pt states that he has to keep his room temp to 65 at night. Pt feels sweaty a lot .Pt has poor sleep Pt denies any night sweat Pt denies any fever, chill Pt denies any weight loss Pt denies any coughing pain Pt c/o chronic l ow back [...] taking a lot of NSAID daily . PHysical Pt needs annual physical. Pt [...] Mental Status Date Cognitive Assessment Orientation - [place]bow ed to time, place, person, situation.
--- OUTSIDE RECORDS SUMMARY | 2025-02-09 11:28 | XMS_ITS | Clinical Summary ---
Author Organization [facility] Address [address] [place] [address] Phone Care Team Providers Care District Captain Name Role Phone Unavailable Primary Care Provider [...]
--- OUTSIDE RECORDS SUMMARY | 2025-02-09 11:28 | XMS_ITS | Clinical Summary ---
Author Organization [facility] [address] [facility] Address [address] [place] [address] Care Team Providers Care Wheelchair Van Driver Name Role Phone Micah Huitron MD Unavailable [phone] Kasey Pierson MD Primary Care Provider [phone] Allergies No known active allergies Medications meloxicam [...] correlation. Assessment & Plan (12/31/2022 4:40 PM DIE REAMER): 32-year-old male returning for re-evaluation of back [...] Huitron. Assessment & Plan (09/19/2020 3:11 PM DIE REAMER): US L foot and ankle (09/10/2020): Lateral [...] impingement. Assessment & Plan (09/19/2020 3:01 PM DIE REAMER): Radiographs revealed minimal reversal of cervical lordosis, [...] on file Legal Sex Male 3:46 PM DIE REAMER Gender Identity Male 08/27/2020 10:33 AM CDT [...] Comment: For additional information, please refer to http://education.questdiagnostics.com/faq/QDB746 (This link is being provided for informational/ [...] a test for HCV RNA (test code 20775) is suggested. For additional information please refer to http://[employer].FiveStars/faq/ZMW39j1 (This link is being provided for informational/ educational purposes only.) Blood specimen (specimen) 09/03/2020 10:35 AM CDT 09/03/2020 10:37 AM CDT [facility] MICROBIOLOGY - NERAL ORDERABLES Final Result [facility] [address] [place] [address] from Last 3 Months or Most Recently Relevant to Health Maintenance Insurance [facility] BLUE ACC CHOICE OOS BLUE ACC CHOICE OOS Member Subscriber Plan / Payer (Ef fective 2022-Present) Name:Jose Rodriguez Relation to Subscriber:Spouse Name:WALKERSTEVAN Martínez Date of :1997 Address: [address] [place] [id number] Payer ID:[id number] (NAIC) Type:BC ALLIANCE Address: [address] [place] [address] Care Teams Wheelchair Van Driver Relationship Specialty Start Date End Date Kasey Pierson MD [address] [place] [address] PCP - General Internal Medicine 03/23/23 Micah Huitron MD [address] [place] [address] Consulting Physician Rheumatology 08/21/20
--- OUTSIDE RECORDS SUMMARY | 2025-02-09 11:28 | XMS_ITS | Clinical Summary ---
Author Organization [facility] Address [address] [place] [address] Care Team Providers Care Telephone Operators Supervisor Name Role Phone Kasey Pierson MD Primary Care Provider [phone] Allergies No known active allergies Medications nabumetone [...] on file Legal Sex Male 2:16 PM CHANNEL WORKER Gender Identity Not on file Sexual Orientation Not on file Last Filed Vital Signs Vital Sign Reading Time Taken Comments Blood Pressure 129/86 10/28/2022 1:58 PM CHANNEL WORKER Pulse 63 10/28/2022 1:58 PM CHANNEL WORKER Temperature 36.9 C (98.5 F) 10/28/2022 1:58 PM CHANNEL WORKER Respiratory Rate 18 10/28/2022 1:58 PM CHANNEL WORKER Oxygen Saturation 99% 10/28/2022 1:58 PM CHANNEL WORKER Inhaled Oxygen Concentration - - Weight 88 kg (194 lb) 10/28/2022 1:58 PM CHANNEL WORKER Height 185.4 cm (6' 1 ) 10/28/2022 1:58 PM CHANNEL WORKER Body Mass Index 25.6 10/28/2022 1:58 PM CHANNEL WORKER Plan of Treatment Health Maintenance Due Date Last Done Comments Hepatitis B Vaccines (1 of 3 - 19+ 3-dose series) 2009 Annual Physical 10/28/2023 10/28/2022 COVID-19 Vaccine ( - 2023-2 5 season) 2024 PHQ-2 (Physician Mereta) 11/09/2024 DTaP, Tdap and Td Vaccines ( [...] HEPATITIS C ANTIBODY Routine 10/28/2022 3:05 PM CHANNEL WORKER Annual physical exam Encounter for medical examination to establish care General medical exam Encounter for hepatitis C screening test for low risk patient from Last 3 Months or Most Recently Relevant to Health Maintenance Results * HEPATITIS C ANTIBODY (10/28/2022 3:05 PM CHANNEL WORKER) HEPATITIS C AB NON-REACTI VE NON-REACT RUBY 10/29/2022 6:43 PM CHANNEL WORKER [facility] Comment: ANTIBODIES TO HCV NOT DETECTED. DOES NOT EXCLUDE THE POSSIBILITY OF EXPOSURE TO HCV. 10/28/2022 3:05 PM CHANNEL WORKER Kasey Pierson MD LABORATORY Final Result [facility] [address] [place] [address], [id number] from Last 3 Months or Most Recently Relevant to Health Maintenance [place] [address] [place] [address] Care Teams Telephone Operators Supervisor Relationship Specialty Start Date End Date Kasey Pierson MD [address] [facility] [address] [place] [id number] PCP - General INTERNAL MEDICINE 10/28/22
== END 2025-02-09 10:47 | disposition home or self-care (01) ==
LOC: CHSED 10:40
PROVIDERS: Emergency Provider Emergency Medicine; PCP Family Medicine
DX: M54.16 Radiculopathy, lumbar region (principal); S39.012A Strain of muscle, fascia and tendon of lower back, initial encounter; X50.9XXA Other and unspecified overexertion or strenuous movements or postures, initial encounter
CPT/HCPCS: 72131; 96372; 99284; J1885; J2360

== ENCOUNTER 2025-08-07 19:39 | Emergency (ER) | payer SELFPAY ==
--- OUTSIDE RECORDS SUMMARY | 2025-08-07 19:43 | XMS_ITS | Clinical Summary ---
Author Organization [facility] Address [address] [place] [address] Phone Care Team Providers Care Health Safety Instructor Name Role Phone Unavailable Primary Care Provider Unavailabl e Allergies No known active allergies Medications cyclobenzaprine (FLEXERIL) 10 mg tablet Take 1 Tablet (10 mg) by mouth 3 times daily as needed for Spasm. 15 Tablet 02/10/2025 8:40 AM CDT 5 Active ketorolac tromethamine (TORADOL) 10 mg tablet Take 1 Tablet (10 mg) by mouth every 6 hours as needed for Pain. 15 Tablet 02/10/2025 8:40 AM CDT 5 Active methylPREDNISolo ne (MEDROL DOSPACK) 4 mg Tablets, Dose Pack Take per package instructions 21 Tablet 02/10/2025 8:40 AM CDT 5 Active Active Problems Problem Noted Date Diagnosed Date Mid back pain 02/09/2025 Encounters Date Type Department Care Team Description 07/25/2025 External Device Data [facility] ABSTRACTION Provider, Abstract 07/11/2025 External Device Data [facility] ABSTRACTION Provider, Abstract 06/28/2025 External Device Data [facility] ABSTRACTION Provider, Abstract 06/27/2025 External Device Data [facility] ABSTRACTION Provider, Abstract 05/25/2025 External Device Data [facility] ABSTRACTION Provider, Abstract 05/09/2025 External Device Data [facility] ABSTRACTION Provider, Abstract from Last 3 Months Social History Tobacco Use Types Packs/Day Years Used Date Smoking Tobacco: Never Tobacco Cessation:Counseling Given: Not Answered Alcohol Use Standard Drinks/Week Comments Yes 0 (1 standard drink = 0.6 oz pur e alcohol) socially Feeling Safe Answer Date Recorded Are you in a relationship wi th someone who hurts you emotionally and/or physically? No 02/09/2025 Sex and Gender Information Value Date Recorded Sex Assigned at Not on file Legal Sex Male 9:27 AM CDT Gender Identity Not on file Sexual Orientation Not on file Last Filed Vital Signs Vital Sign Reading Time Taken Comments Blood Pressure 130/76 02/10/2025 8:50 AM CDT Pulse 91 02/10/2025 8:50 AM CDT Temperature 36.6 C (97.8 F) 02/10/2025 8:50 AM CDT Respiratory Rate 18 02/10/2025 8:50 AM CDT Oxygen Saturation 97% 02/10/2025 8:50 AM CDT Inhaled Oxygen Concentration - - Weight 83.9 kg (185 lb) 02/09/2025 3:50 PM CDT Height 185.4 cm (6' 1) 02/09/2025 3:50 PM CDT Body Mass Index 24.41 02/09/2025 3:50 PM CDT Plan of Treatment Health Maintenance Due Date Last Done Comments HEPATITIS B VACCINES (1 of 3 - 19+ 3-dose series) 08/09 HPV VACCINES (1 - 3-dose SCDM series) 2017 INFLUENZA VACCINE (#1) 2025 DTAP/TDAP/TD VACCINES (2 - Td or Tdap) 11/25/2031 Insurance RX [employer] (INTERNAL) [facility] Advance Directives For more information, please contact: [phone] * Default Full Code - Needs Discussion (Latest Code Status on File) Date Activated Date Inactivated Comments 02/10/2025 1:46 AM 02/10/2025 11:08 AM
--- OUTSIDE RECORDS SUMMARY | 2025-08-07 19:43 | XMS_ITS | Clinical Summary ---
Author Organization [facility] [address] [facility] Address [address] [place] [address] Care Team Providers Care Glass Driller Name Role Phone Miach Huitron MD Unavailable [phone] Kasey Pierson MD Primary Care Provider [phone] Allergies No known active allergies Medications meloxicam [...] correlation. Assessment & Plan (12/31/2022 4:40 PM RISK CONTROL OFFICER): 32-year-old male returning for re-evaluation of back [...] Huitron. Assessment & Plan (09/19/2020 3:11 PM RISK CONTROL OFFICER): US L foot and ankle (09/10/2020): Lateral [...] impingement. Assessment & Plan (09/19/2020 3:01 PM RISK CONTROL OFFICER): Radiographs revealed minimal reversal of cervical lordosis, [...] Tobacco: Never Personal Safety Answer Date Recorded Have you ever been in or are you currently in a harmful physical or emotional relationship or is someone making you feel afraid or unsafe? Denies 03/23/2023 Sex and Gender Information Value Date Recorded Sex Assigned at Not on file Legal Sex Male 3:46 PM RISK CONTROL OFFICER Gender Identity Male 08/27/2020 10:33 AM CDT [...] 1:15 AM CDT Height 185.4 cm (6' 1) 03/23/2023 1:15 AM CDT Body Mass Index 24.41 03/23/2023 1:15 AM CDT Plan of Treatment Health Maintenance Due Date Last Done Comments Depression Screening 1990 Varicella Vaccines (1 of 2 - 13+ 2-dose series) 2003 Hepatitis B Screening 2008 Regular Well Visit/Exam 18-64 2008 HPV Vaccines (1 - 3-dose SCD M series) 2017 Influenza Vaccine (#1) 2025 DTaP/Tdap/Td Vaccine (2 - Td or Tdap) 11/25/2031 11/25/2021 Hepatitis C Screening Completed 09/03/2020 Pneumococcal vaccine <65 Aged Out No longer [...] Comment: For additional information, please refer to http://education.weipass/faq/KYA053 (This link is being provided for informational/ [...] a test for HCV RNA (test code 15256) is suggested. For additional information please refer to http://Telvent Git.weipass/faq/DJZ03e9 (This link is being provided for informational/ educational purposes only.) Blood specimen (specimen) 09/03/2020 10:35 AM CDT 09/03/2020 10:37 AM CDT [facility] ORDERABLES Final Result [facility] [address] [place] [address] from Last 3 Months or Most Recently Relevant to Health Maintenance Insurance [facility] Care Teams Glass Driller Relationship Specialty Start Date End Date Kasey Pierson MD [address] [place] [address] PCP - General Internal Medicine 03/23/23 Micah Huitron MD [address] [place] [address] Consulting Physician Rheumatology 08/21/20
[2025-08-07 19:44] VITALS: BP 149/103; PULSE 67; RESP 20; TEMP 36.4; O2SAT 100
--- NOTE | 2025-08-07 19:57 | ED_ITS ---
HPI - Ear Problem General Chief complaint: Upper Respiratory Infection Stated complaint: Fever/Headache/Ear Pain/Chest Congestion Time Seen by Provider: 08/07/25 19:52 Source: patient and RN notes reviewed Mode of arrival: ambulatory Limitations: no limitations History of Present Illness HPI Narrative: 34-year-old male presents concern for 5 day history of sinus congestion, pressure, ear pain, headache, chest congestion and cough. Reports he has been having chest discomfort today. He has been taking multiple celg-txm-auzpezy medications without relief. He reports general malaise, fever, body aches, chills, sweats. MD Complaint: other (URI) Related Data Allergies Allergy/AdvReac Type Severity Reaction Status Date / Time No Known Allergies Allergy Unknown Verified 08/07/25 19:47 Review of Systems Review of Systems: CONSTITUTIONAL: Reports malaise, chills, sweats, fever. EYES: Denies visual changes, redness, or discharge. ENT: Reports rhinorrhea, congestion, sinus pain, otalgia and sore throat. CARDIOVASCULAR: Denies chest pain, palpitations, or edema. RESPIRATORY: Reports cough. Denies dyspnea. GASTROINTESTINAL: Denies abdominal pain, nausea, vomiting, diarrhea SKIN: Denies rash or itching. MUSCULOSKELETAL: Reports myalgia. NEUROLOGIC: Reports headache. All systems reviewed & are unremarkable except as noted in HPI and below PMFSH Past Medical History Medical History Healthy adult male Surgical History Surgical History No history of previous surgery Social History Social History Alcohol intake: current Gender identity (if verbalized by the patient): Male Comments At time of signature, agree with nursing past medical, surgical, social and family history. There is no relevant family history pertinent to the presenting complaint Exam Narrative: GENERAL: Nontoxic-appearing, well-nourished, and in no acute distress. HEAD: Normocephalic EYES: PERRLA, conjunctivae clear ENT: Nares clear, turbinates edematous and erythematous. Mucous membranes moist. TM pearly connolly with sharp light reflex bilaterally; no tragal tenderness. Oropharynx not erythematous without lesions. Tonsils not enlarged and without exudate, no drooling, no hoarseness, no trismus, uvula midline. NECK: Supple. No lymphadenopathy CHEST: Clear to auscultation, breath sounds diminished on the left. No wheezing, rhonchi, rales, or stridor. No respiratory distress, speaks in full sentences. HEART: Regular rate and rhythm. No murmur heard. SKIN: Warm, dry, no rash. NEURO: Alert and oriented x3. PSYCH: Normal mood and affect Course Course Emergency Course: Patient is aware of diagnosis, understands and agrees to treatment plan. Anticipatory guidance given. Patient agrees to follow-up as directed and is aware of reasons to seek care at the emergency department. Portions of this record may have been created with voice recognition software Level of Care: Express Care Visit Vital Signs Vital signs: Vital Signs Temperature 97.6 F 08/07/25 19:44 Pulse Rate 08/07/25 19:44 Respiratory Rate 08/07/25 19:44 Blood Pressure 149/103 H 08/07/25 19:44 Pulse Oximetry 100 08/07/25 19:44 Oxygen Delivery Room Air 08/07/25 19:44 Temperature 97.6 F 08/07/25 19:44 Pulse Rate 08/07/25 19:44 Respiratory Rate 08/07/25 19:44 Blood Pressure 149/103 H 08/07/25 19:44 Pulse Oximetry 100 08/07/25 19:44 Oxygen Delivery Room Air 08/07/25 19:44 Reviewed. Medical Decision Making Vital Signs Vital Signs: Vital Signs Temperature 97.6 F 08/07/25 19:44 Pulse Rate 08/07/25 19:44 Respiratory Rate 08/07/25 19:44 Blood Pressure 149/103 H 08/07/25 19:44 Pulse Oximetry 100 08/07/25 19:44 Oxygen Delivery Room Air 08/07/25 19:44 Temperature 97.6 F 08/07/25 19:44 Pulse Rate 08/07/25 19:44 Respiratory Rate 08/07/25 19:44 Blood Pressure 149/103 H 08/07/25 19:44 Pulse Oximetry 100 08/07/25 19:44 Oxygen Delivery Room Air 08/07/25 19:44 Critical Care Time Critical Care Time Critical Care Time: No Discharge Plan Discharge Clinical Impression: Lower respiratory tract infection Patient Disposition: Home Condition: Stable Instructions: Antibiotic Form, Pneumonia (ED) Additional Instructions: 1) Please follow-up with your primary care doctor in the next 1-2 days. 2) If you have any worsening of symptoms or any other urgent concerns please go to the ER. 3) Please take medications as prescribed and continue taking your home medications as usual. 4) Please read and follow information included in discharge instructions. Patient Language: Vietnamese Prescriptions: New azithromycin [Zithromax Z-Joselito] 250 mg tablet See Rx Instructions .ROUTE .COMPLEX Qty: 6 0RF Rx Instructions: take 500 mg today (day 1), then 250 mg for 4 days (days 2-5) prednisone 20 mg tablet 40 mg PO DAILY 5 Days Qty: 10 0RF Follow-up/Referrals: PHYSICIAN,FISH STRINGER ASSEMBLER [Primary Care Provider, Internal Medicine] Time of Disposition: 19:59
== END 2025-08-07 20:02 | disposition home or self-care (01) ==
PROVIDERS: Emergency Provider Nurse Practitioner
DX: J22 Unspecified acute lower respiratory infection (principal)
CPT/HCPCS: 99213; G0463